=== PATIENT | female | born 1940 | race Caucasian/White ===

== ENCOUNTER 2017-09-18 09:42 | Outpatient (CLI) | payer MEDICARE, BC ==
--- NOTE | 2017-09-18 13:12 | ULT ---
ULTRASOUND PELVIC ULTRASOUND TRANSVAGINAL DOPPLER DUPLEX: DATE: 09/18/2017 HISTORY: A 77-year-old female with midline pelvic pain. TECHNIQUE: Transabdominal transducer used to evaluate intrapelvic contents using the urinary bladder as an acous tic window. Endovaginal transducer used to visualize intrapelvic contents in greater detail. Color fl ow Doppler and Pulsed Doppler spectral waveform analysis of ovaries. FINDINGS: Uterus: Surgically absent. Right ovary: 2 x 1 x 1 cm. Blood flow demonstrated in the right ovary by Doppler. No ovarian cyst. Left ovary: Not identified. Free fluid: None identified. Urinary bladder: Unremarkable. IMPRESSION: 1. Status post hysterectomy. 2. Left ovary not visualized. 3. Unremarkable right ovary. CHLOE Vaz POS: NOLAN
== END 2017-09-18 09:43 | disposition home or self-care (01) ==
LOC: ULT 09:42
PROVIDERS: ATTEND Family Medicine
DX: R10.30 Lower abdominal pain, unspecified (principal); Z90.710 Acquired absence of both cervix and uterus
CPT/HCPCS: 76856

== ENCOUNTER 2018-02-20 02:20 | Inpatient (IN) | payer MEDICARE, BC ==
[2018-02-20 02:53] LABS: Bilirubin Negative (Negative); Blood, Urine Trace (Negative); Clarity CLOUDY (Clear); Glucose, Urine (Dipstick) Negative (Negative); Leukocyte Large (Negative); Nitrite Negative (Negative); Protein, Urine (Dipstick) Negative (Neg-Trace); Urobilinogen 0.2 mg/dL (0.2-1.0)
[2018-02-20 02:56] LABS: Bacteria/HPF 2+ HPF (None Seen); RBC/HPF 0-3 HPF (0-3); Squamous Epithelial None Seen HPF (0-3)
[2018-02-20 02:57] LABS: Pathc Cast-AUWi Flag 4.07 (0-2.49); Yeast-AUWi Flag 30.8 (0-25.0)
[2018-02-20 03:09] LABS: Other Casts/LPF None Seen LPF (0-3 Hyaline); Yeast-All Forms None Seen HPF (None Seen)
[2018-02-20] MEDS ORDERED: cefTRIAXone\\ROCEPHIN 2 GM VIAL ONE (03:44)
[2018-02-20] MEDS ORDERED: Ondansetron ODT 4 MG TAB SL PRN (04:44)
[2018-02-20] MEDS ORDERED: Sodium Chloride 0.9% 1,000 ML IV SCH (04:44)
[2018-02-20] MEDS ORDERED: Ondansetron HCl/PF 4 MG/2 ML Vial IVP PRN ×2 (04:44→09:33)
[2018-02-20 05:21] VITALS: BMI 34.5
[2018-02-20 09:02] LABS: CRP (Inflammatory) 0.68 mg/dL (= or < 0.5); Magnesium 1.6 mg/dL (1.6-2.6); Troponin I Less than 0.010 ng/mL (< 0.028)
[2018-02-20] MEDS ORDERED: Insulin Regular 300 UNITS/3 ML VIAL SC PRN (09:33)
[2018-02-20] MEDS ORDERED: Nitroglycerin 0.4 MG TAB (25 Tab Bottle) PO PRN (09:33)
[2018-02-20] MEDS ORDERED: Bisacodyl 10 MG SUPP PR PRN (09:33)
[2018-02-20] MEDS ORDERED: Calcium Carbonate 500 MG ChewTAB PO PRN (09:33)
[2018-02-20] MEDS ORDERED: Dextrose 5% in Water 1,000 ML IV PRN (09:33)
[2018-02-20] MEDS ORDERED: Dextrose 50% Abboject 50 ML SYRINGE SLOW IVP PRN (09:33)
[2018-02-20] MEDS ORDERED: Senokot 8.6 MG TAB PO PRN (09:33)
[2018-02-20] MEDS ORDERED: Ondansetron ODT 4 MG TAB PO PRN (09:33)
--- NOTE | 2018-02-20 09:48 | HP ---
DATE OF ADMISSION: 02/20/2018 CHIEF COMPLAINT: Altered mentation, generalized weakness and fall. HISTORY OF PRESENT ILLNESS: The patient is a 77-year-old female with chronic pain syndrome on chronic narcotics, diabetes mellitus type 2 and hypertension who was brought into [facility] Room with above complaints. Not much information is available from the patient due to current cognition. No family at the bedside. History obtained from the ER chart. The patient presented to [facility] Room due to generalized weakness and unable to get up. She called EMS. She usually ambulates with the help of a cane. The weakness has been ongoing for the last few days. There were no significant injuries. She has chronic back pain, which has unchanged. In the emergency room, her initial vital signs showed temperature 98.2, respirations 16, pulse 55, blood pressure 129/44 with O2 saturation 94% on room air. Her blood pressure in the emergency room dropped to 88/39 that improved with IV hydration. She was found to have pinpoint pupils with dry mucous membranes. She was transferred to this facility for hospital admission. At this facility, she was diagnosed with UTI and received [address] head was negative for acute findings. Chest x-ray was negative for infiltrate. Urinalysis was consistent with UTI. Blood cultures have been sent. PAST MEDICAL HISTORY: 1. Hypertension 2. Hyperlipidemia. 3. Diabetes mellitus type 2. 4. Chronic low back pain managed by Dr. Trinh. 5. Depression, anxiety. 6. History of recurrent urinary tract infection, followed by Dr. Hood. 7. Overactive bladder. 8. Vitamin D deficiency. 9. Obesity with a BMI of 34.6. 10. Chronic insomnia. 11. Colon polyp. PAST SURGICAL HISTORY: 1. Tonsillectomy. 2. Hysterectomy, partial. 3. Bilateral knee replacement. 4. Right hip replacement. 5. Abdominal hernia repair. 6. Back surgery. 7. Left rotator cuff surgery. 8. Bladder suspension. 9. Spinal stimulator ([employer] placed in 2005). 10. Cataract surgery x2. ALLERGIES: The patient is allergic to, 1. LOPRESSOR that causes swelling. 2. MOBIC that causes swelling. 3. FENTANYL that causes itching. 4. TYLOX that causes hallucination. CURRENT HOME MEDICATIONS: Cannot be obtained from the patient due to current cognitive status. Apparently, there is a lidocaine patch and a fentanyl patch was found on the patient on admission. Per review of recent pharmacy record, the patient takes MS Contin, gabapentin, glipizide, lisinopril and amlodipine. We will try to obtain accurate list from the family. SOCIAL HISTORY: The patient currently lives at home with her . She is a former smoker. She is retired. is the primary decision maker. She is full code. No alcohol or drugs. Ambulates with the help of a cane. FAMILY HISTORY: Father of cancer. No other family history available from the patient. REVIEW OF SYSTEMS: Cannot be reliably obtained from the patient due to current cognitive status. PHYSICAL EXAMINATION: VITAL SIGNS: As discussed above, her last blood pressure was 124/59. GENERAL: A 77-year-old female with confusion. HEENT: Head atraumatic, normocephalic. Pupils were 4 mm bilaterally with slow response to light. Dry mucous membrane. No oral lesion. NECK: Supple, no JVD, no carotid bruit. LUNGS: Clear to auscultation bilaterally. No wheezing, rales or rhonchi. HEART: S1, S2 present. Regular rate and rhythm. No rubs or gallops appreciated. No significant murmurs appreciated. ABDOMEN: Soft, nontender, bowel sounds present. EXTREMITIES: No edema or calf tenderness. NEUROLOGIC: Limited neurological examination was essentially nonfocal. Power was 5/5 in all extremities. Gpspxb-sl-brfa test was normal. PSYCHIATRIC: The patient is alert and awake with intermittent confusion. She follows commands. She is aware that she is in the hospital. SKIN: Warm and dry. LYMPH NODES: No palpable lymph nodes in the neck. PERIPHERAL VASCULAR: Radial pulses palpable bilaterally. MUSCULOSKELETAL: No joint swelling or tenderness. LABORATORY FINDINGS: CBC showed WBC 6.1, hemoglobin 11.4, hematocrit 34.9, platelet 145,000. Chemistry showed sodium 136, potassium 4.6, chloride 97, bicarbonate 28, BUN 32, creatinine 1.44. Troponins were negative. BNP was 64. CRP was 0.68. TSH was 2. Magnesium 1.6. Urinalysis showed 2+ bacteria with greater than 50 WBCs. IMAGIN. Chest x-ray by my review was negative. 2. Per ER record, CT scan of the brain was negative. However, I am unable to find the CT report. 3. EKG by my review showed sinus bradycardia with left axis deviation without significant ST-T wave changes. IMPRESSION: 1. Toxic metabolic encephalopathy, multifactorial. The patient had pinpoint pupils in the emergency room. She also has urinary tract infection. She has acute kidney injury as well. Rule out intracerebral bleed. 2. Chronic pain syndrome on chronic narcotics. 3. Acute kidney injury on chronic kidney disease stage 3. 4. Generalized weakness with fall, probably secondary to toxic metabolic encephalopathy, chronic pain syndrome and acute kidney injury on chronic kidney disease stage 3. 5. Urinary tract infection. The patient has a history of recurrent urinary tract infections. 6. Anxiety, depression. The patient denies any suicidal ideation. 7. Hyperlipidemia. 8. Hypertension. 9. Diabetes mellitus type 2. PLAN: The patient will be monitored on the telemetry unit. We will get frequent neuro checks. A CT scan of the brain will be obtained. We will continue IV ceftriaxone. Urine cultures have been sent. I am unable to confirm whether blood cultures were sent. However, she has already received antibiotics. We will check orthostatic vitals. We will consult Physical Therapy. We will hold narcotics for now. We will confirm all of her home medications. Insulin sliding scale. Plan of care was discussed with the patient. We will discuss the plan of care with the family. MARINA
[2018-02-20] MEDS: Sodium Chloride 0.9% 1,000 ML IV SCH ×2 (11:07→18:23)
--- NOTE | 2018-02-20 12:19 | CT ---
HEAD CT WITHOUT CONTRAST: Date: 02/20/18 COMPARISON: None. HISTORY: Fall, altered mental status. TECHNIQUE: Serial axial CT imaging at 5 mm intervals from vertex through skull base without contrast. FINDINGS: Imaged paranasal sinuses/mastoid air cells well aerated. No displaced calvarial fracture. No intracra nial hemorrhage, midline shift, mass effect, or ventricular enlargement. IMPRESSION: No acute findings. POS: NOLAN
--- NOTE | 2018-02-20 12:34 | RAD ---
RIGHT HIP 2 VIEWS: Date: 02/20/18 HISTORY: 77-year-old female with history of right hip pain following a fall. FINDINGS/IMPRESSION: Total right hip replacement changes without dislocation or periprosthetic fracture. POS: VIKAS
--- NOTE | 2018-02-20 12:36 | RAD ---
LEFT HIP 2 VIEWS: Date: 02/20/18 HISTORY: 77-year-old female with history of left hip pain following a fall. FINDINGS/IMPRESSION: Total left hip replacement without dislocation or periprosthetic fracture or other acute process. POS: VIKAS
[2018-02-20] MEDS ORDERED: Magnesium 2 GM/NS 0.9% 100 ML 2 GM in Premix Bag 1 BAG IVPB SCH (13:30)
[2018-02-20] MEDS ORDERED: Famotidine 20 MG TAB PO SCH ×2 (21:00)
[2018-02-20] MEDS: Enoxaparin Sodium 30 MG/0.3 ML SYRINGE SC SCH (21:18)
[2018-02-20] MEDS: Docusate 100 MG CAP PO SCH (21:19)
[2018-02-20] MEDS: Acetaminophen 325 MG TAB PO PRN (23:26)
[2018-02-21] MEDS: Sodium Chloride 0.9% 1,000 ML IV SCH ×3 (03:44→20:53)
[2018-02-21] MEDS: Acetaminophen 325 MG TAB PO PRN ×3 (05:51→15:43)
[2018-02-21 06:17] LABS: #Eosinphils 0.2 thou/uL (0.0-0.7); #Lymphocytes 1.3 thou/uL (1.20-3.40); #Monocytes 0.3 thou/uL (0.11-0.59); #Neutrophils 1.9 thou/uL (1.40-6.50); %Eosinophils 4.4 % (0.0-10.0); %Lymphocytes 35.4 % (21.0-51.0); %Monocytes 7.6 % (0.0-10.0); %Neutrophils 52.6 % (42.0-75.0); Hemoglobin 12.2 g/dL (12.0-16.0); Mean Corpuscular Hemoglobin 29.2 pg (27.0-31.0); Mean Corpuscular Volume 88.5 fL (78.0-98.0); Platelet Count 148 thou/uL (130-400); RBC Distribution Width 12.7 % (11.5-14.5); Red Blood Cell (RBC) Count 4.17 mill/uL (4.20-5.40); White Blood Cell (WBC) Count 3.6 thou/uL (4.8-10.8)
[2018-02-21 06:36] LABS: Anion Gap 11 mmol/L (10-20); BUN (Urea Nitrogen) 17 mg/dL (9.8-20.1); Calc. Creatinine Clearance 67 mL/min (70-130); Calcium 9.3 mg/dL (7.8-10.44); Carbon Dioxide 26 mmol/L (23-31); Chloride 103 mmol/L (98-107); Estimated GFR-MDRD 65; Glucose 116 mg/dL (83-110); Potassium 4.2 mmol/L (3.5-5.1); Sodium 136 mmol/L (136-145)
[2018-02-21] MEDS ORDERED: Enoxaparin Sodium 30 MG/0.3 ML SYRINGE SC SCH (09:00)
[2018-02-21] MEDS: Docusate 100 MG CAP PO SCH ×2 (09:10→20:49)
[2018-02-21] MEDS ORDERED: Morphine IR Tab 15 MG TAB PO PRN (09:32)
[2018-02-21] MEDS ORDERED: Gabapentin 100 MG CAP PO SCH ×2 (10:00→15:00)
[2018-02-21] MEDS ORDERED: Amlodipine 5 MG TAB PO SCH (12:00)
[2018-02-21] MEDS ORDERED: Lisinopril 20 MG TAB PO SCH (12:00)
[2018-02-21] MEDS ORDERED: Spironolactone 25 MG TAB PO SCH (12:00)
--- NOTE | 2018-02-21 19:15 | PRG ---
DATE OF SERVICE: 02/21/2018 SUMMARY: A 77-year-old female with chronic pain syndrome on chronic narcotics, presented to the hosp ital with altered mentation with generalized weakness and fall. She had pinpoint pupils in the emerg ency room. A workup was also consistent with UTI. A CT brain was negative. She also had some acute kidney injury that improved with IV hydration. SUBJECTIVE: The patient denies any new complaints. Mentation has significantly improved. She denie s any chest pain, shortness of breath, palpitations, fever or chills. OBJECTIVE: VITAL SIGNS: Temperature 98, pulse rate of 53, respiration 15, blood pressure 164/69. Intake of 349 1, output 3640. GENERAL: A 77-year-old female in no apparent distress. Telemetry monitoring by my review showed sin us bradycardia. LUNGS: Clear to auscultation bilaterally. HEART: S1, S2 present. Regular rate and rhythm. ABDOMEN: Soft, bowel sounds present. EXTREMITIES: No edema or calf tenderness. NEUROLOGIC: Grossly nonfocal. Cranial nerves II-XII were normal on examination. PSYCHIATRIC: Alert, awake, oriented x3. Mentation has significantly improved. LABORATORY FINDINGS: 1. Creatinine has improved to 0.85 from 1.44, sodium 136, potassium 4.2. 2. WBC 3.6 with hemoglobin 12.2. Urine culture showed alpha hemolytic streptococcus greater than 10 0,000 colonies. 3. X-ray of the hip was negative. CT scan of the brain was negative. IMPRESSION: 1. Toxic metabolic encephalopathy, multifactorial. Possibilities include urinary tract infection ve rsus encephalopathy secondary to narcotics. She was also dehydrated. 2. Chronic pain syndrome on chronic narcotics. We will resume oral morphine as needed with holding parameters. 3. Acute kidney injury on chronic kidney disease stage 3, improved. We will reduce IV fluid rate. 4. Hypertension, uncontrolled. Blood pressure was in systolic 180s this morning. We will resume al l of her home medications. 5. Anxiety, depression. Patient denies any suicidal ideation. 6. Diabetes mellitus type 2. We will continue sliding scale. 7. Hyperlipidemia. We will continue home medications. 8. Disposition: Probably in 24 hours if patient remains stable. We will continue physical therapy, occupation therapy.
[2018-02-21] MEDS: Enoxaparin Sodium 30 MG/0.3 ML SYRINGE SC SCH (20:48)
[2018-02-21] MEDS: TROSPIUM 20 MG TABLET PO SCH (20:48)
[2018-02-21] MEDS: Lisinopril 20 MG TAB PO SCH (20:49)
[2018-02-21] MEDS: Pregabalin 75 MG CAP PO SCH (20:50)
[2018-02-21] MEDS: Famotidine 20 MG TAB PO SCH (20:50)
[2018-02-21] MEDS ORDERED: traZODone HCl 50 MG TAB PO SCH (21:00)
[2018-02-21] MEDS ORDERED: Pravastatin Sodium 20 MG TAB PO SCH (21:00)
[2018-02-22] MEDS: Acetaminophen 325 MG TAB PO PRN (08:12)
[2018-02-22] MEDS: Docusate 100 MG CAP PO SCH (08:13)
[2018-02-22] MEDS: Lisinopril 20 MG TAB PO SCH (08:13)
[2018-02-22] MEDS: Pregabalin 75 MG CAP PO SCH (08:13)
[2018-02-22] MEDS: Famotidine 20 MG TAB PO SCH (08:14)
[2018-02-22] MEDS: TROSPIUM 20 MG TABLET PO SCH (08:15)
[2018-02-22] MEDS ORDERED: Fenofibrate Nanocrystallized 145 MG TAB PO SCH (09:00)
[2018-02-22] MEDS ORDERED: Amlodipine 5 MG TAB PO SCH (09:00)
[2018-02-22] MEDS ORDERED: Spironolactone 25 MG TAB PO SCH (09:00)
[2018-02-22 11:55] VITALS: BP 145/65; TEMP 97.6
--- NOTE | 2018-02-22 13:48 | DIS ---
DATE OF ADMISSION: 02/20/2018 DATE OF DISCHARGE: 02/22/2018 PRIMARY CARE PHYSICIAN: Ritu Murray M.D. DISCHARGE DISPOSITION: Home. PRIMARY DISCHARGE DIAGNOSES: 1. Toxic metabolic encephalopathy. 2. Opioid overmedication. 3. Chronic pain. 4. Urinary tract infection. 5. Acute on chronic kidney injury, resolved. 6. Hypertension. 7. Diabetes mellitus, type 2. DISCHARGE MEDICATIONS: Include Levaquin 250 mg p.o. daily and glyburide 5 mg daily. She is to danny nue morphine extended release 15 mg q.8 hours as needed. Lyrica was discontinued. Trazodone to cont inue 100 mg daily. Continue Aldactone 25 mg daily, VESIcare 5 mg daily, ranitidine 150 mg twice a da y, pravastatin 20 mg at bedtime, lisinopril 20 mg twice a day, lidocaine patch daily, hydrochlorothia zide 12.5 mg daily, Lasix 20 mg daily, fenofibrate 145 mg daily, Biotin 1 mg daily, amlodipine 5 mg d aily. PROCEDURES DONE DURING ADMISSION: The patient had a CT scan of the brain, which was negative for any acute findings. CODE STATUS: Full code. ALLERGIES: MELOXICAM, METOPROLOL, OXYCODONE and PENICILLIN. HOSPITAL COURSE: Ms. Reynolds is a pleasant 77-year-old female who presented to the emergency room with altered mental status. She was confused and a bit lethargic. She was found to have a urinary tract infection and also was found to be dehydrated with an acute on chronic kidney failure, which wa s mild. She was also noted to have a recent increase in the dose of Lyrica and her seems to believe that she is overmedicated. This was discussed with the patient and the plan will be to disco ntinue the Lyrica as she said she was only taking it once a day already anyway and to only take the m orphine as needed and also to stay hydrated and she will also be discharged home on Levaquin. Urine cultures grew Aerococcus urinae. She was subsequently discharged home to [facility].
== END 2018-02-22 13:10 | disposition home or self-care (01) | DRG 689 ==
LOC: ERS 02:20 → 2NO 03:00
PROVIDERS: ADMIT Internal Medicine; ATTEND Internal Medicine
DX: N39.0 Urinary tract infection, site not specified (principal); G92 Toxic encephalopathy; N17.9 Acute kidney failure, unspecified; E78.5 Hyperlipidemia, unspecified; F32.9 Major depressive disorder, single episode, unspecified; G89.29 Other chronic pain; M54.5 Low back pain; F41.9 Anxiety disorder, unspecified; N32.81 Overactive bladder; E55.9 Vitamin D deficiency, unspecified; E66.9 Obesity, unspecified; Z68.34 Body mass index [BMI] 34.0-34.9, adult; G47.00 Insomnia, unspecified; K63.5 Polyp of colon; Z96.653 Presence of artificial knee joint, bilateral; Z96.641 Presence of right artificial hip joint; Z88.8 Allergy status to other drugs, medicaments and biological substances; Z88.6 Allergy status to analgesic agent; Z79.899 Other long term (current) drug therapy; Z87.891 Personal history of nicotine dependence; N18.3 Chronic kidney disease, stage 3 (moderate); I12.9 Hypertensive chronic kidney disease with stage 1 through stage 4 chronic kidney disease, or unspecified chronic kidney disease; E11.22 Type 2 diabetes mellitus with diabetic chronic kidney disease; Z79.891 Long term (current) use of opiate analgesic; T40.605A Adverse effect of unspecified narcotics, initial encounter; Z88.0 Allergy status to penicillin; Z88.5 Allergy status to narcotic agent; E86.0 Dehydration
CPT/HCPCS: 36415; 36416; 51701; 70450; 80048; 81003; 81015; 83735; 84484; 85025; 86140; 87077; 87086; 94760; 96365; 99214; A4216; A4353; G0463; G8978-GP-CI; G8979-GP-CI; G8980-GP-CI; G8987-GO-CJ; G8988-GO-CI; J0696; J1650; J1815; J1956; J3475

== ENCOUNTER 2018-04-22 06:17 | Day surgery (SDC) | payer MEDICARE, BC ==
[2018-04-21 08:44] VITALS: BMI 34.0
[2018-04-22 08:02] LABS: Anion Gap 14 mmol/L (10-20); BUN (Urea Nitrogen) 19 mg/dL (9.8-20.1); Calc. Creatinine Clearance 69 mL/min (70-130); Calcium 9.6 mg/dL (7.8-10.44); Carbon Dioxide 25 mmol/L (23-31); Chloride 103 mmol/L (98-107); Estimated GFR-MDRD 67; Glucose 129 mg/dL (83-110); Potassium 4.4 mmol/L (3.5-5.1); Sodium 138 mmol/L (136-145)
[2018-04-22] MEDS ORDERED: Fentanyl 100 MCG/2 ML VIAL ONE ×2 (08:03→08:40)
[2018-04-22 08:17] LABS: #Eosinphils 0.2 thou/uL (0.0-0.7); #Lymphocytes 1.4 thou/uL (1.20-3.40); #Monocytes 0.4 thou/uL (0.11-0.59); #Neutrophils 3.1 thou/uL (1.40-6.50); %Basophils 0.6 % (0.0-1.0); %Lymphocytes 27.8 % (21.0-51.0); %Monocytes 8.4 % (0.0-10.0); %Neutrophils 60.2 % (42.0-75.0); Hemoglobin 12.9 g/dL (12.0-16.0); Mean Corpuscular Hemoglobin 29.2 pg (27.0-31.0); Mean Corpuscular Volume 88.4 fL (78.0-98.0); Mean Platelet Volume 8.8 fL (7.4-10.4); Platelet Count 147 thou/uL (130-400); RBC Distribution Width 13.9 % (11.5-14.5); Red Blood Cell (RBC) Count 4.41 mill/uL (4.20-5.40); White Blood Cell (WBC) Count 5.1 thou/uL (4.8-10.8)
--- NOTE | 2018-04-22 08:28 | RAD ---
PORTABLE UPRIGHT CHEST ONE VIEW: History: 77-year-old female with history of pre-operative evaluation. FINDINGS: Dorsal column stimulator leads overlie the thoracic spine. Pedicle screws and rods are noted involvin g the upper lumbar spine. Total right shoulder reverse arthroplasty changes are noted. Minimal parenc hymal changes in the left lower lobe which appear stable. No confluent pneumonia or other significant new process. IMPRESSION: Stable minimal pleural and parenchymal opacity changes in the left base. No significant new process. POS: NOLAN
[2018-04-22] MEDS ORDERED: Betamet Acet/Betamet Na Ph 30 MG/5 ML VIAL ONE (08:38)
[2018-04-22] MEDS ORDERED: Bacitracin Zinc Ointment 30 gm TUBE ONE (08:38)
[2018-04-22] MEDS ORDERED: Bupivacaine PF 0.5% 30 ML VIAL ONE (08:38)
[2018-04-22] MEDS ORDERED: CEFAZOLIN 2 GM/50 ML BAG ONE (08:45)
--- NOTE | 2018-04-22 11:24 | OP ---
DATE OF PROCEDURE: 04/22/2018 SURGEON: Dr. Feroz Mondragon PREOPERATIVE DIAGNOSIS: Left carpal tunnel syndrome. POSTOPERATIVE DIAGNOSIS: Left carpal tunnel syndrome. PROCEDURE: 1. Left carpal tunnel release. 2. Injection of steroid carpal tunnel canal. SPECIMEN: None. BLOOD LOSS: 5 mL. TOURNIQUET TIME: 17 minutes. 1.5 cm area of stippling with hourglass formation median nerve within the carpal canal. INDICATION: Failed conservative treatment with documented clinical and electrodiagnostic carpal tunn el syndrome. PROCEDURE IN DETAIL: After successful general LMA technique, the limb was prepped and draped. Timeo ut was done appropriately. We injected the area with 10 mL 0.5% Marcaine before surgery and 10 after the wound was closed. We exsanguinated the limb and inflated tourniquet to 250 mmHg pressure. Incision was outlined and then made in line with the ring finger from medial to lateral as far distal as Hernandez's cardinal line for approximately 5 mm distal to the volar wrist flexion crease. The dull dissection with tenotomy scissors, got down to the transverse carpal ligament, we spread this with s elf-retainer, tracked it and then entered the transcarpal ligament from the mid portion distally with a combination of Paulding blade, tenotomy scissors, protecting the nerve endings. This was released c ompletely, then we released the transverse carpal ligament proximal and mid portion proximally, ensur ing that there was no defect in the transverse carpal ligament release visually or by palpation at th e end of the procedure. We placed 3 mL of Celestone in drip technique around the area where the most stippling was noticed, released the tourniquet, closed the epidermis only with interrupted 4-0 nylon mattress pattern. Bulky dressing was applied and the patient left the operating room without eviden ce of anesthetic or operative complication.
[2018-04-22] MEDS ORDERED: Lidocaine 1% PF 5 ML VIAL ONE (15:08)
[2018-04-22] MEDS ORDERED: Ondansetron PF 4 MG/2 ML Vial ONE (15:08)
[2018-04-22] MEDS ORDERED: PROPOFOL 200 MG/20 ML VIAL ONE (15:08)
--- NOTE | 2018-04-27 21:47 | EKG ---
Test Reason : PREOP Blood Pressure : / mmHG Vent. Rate : 058 BPM Atrial Rate : 058 BPM P-R Int : 148 ms QRS Dur : 086 ms QT Int : 464 ms P-R-T Axes : 024 -36 -16 degrees QTc Int : 455 ms Sinus bradycardia Left axis deviation Nonspecific T wave abnormality Abnormal ECG No previous ECGs available Confirmed by RIVERA GTZ (2) on 04/27/2018 9:46:57 PM Referred By: YENI Confirmed By:RIVERA GTZ
== END 2018-04-22 11:20 | disposition home or self-care (01) ==
LOC: SDC 06:17
PROVIDERS: ATTEND Orthopaedic Surgery Hand Surgery
PROC: 01N50ZZ Release Median Nerve, Open Approach (ICD-10-PCS; principal; 2018-04-22)
DX: G56.02 Carpal tunnel syndrome, left upper limb (principal); I10 Essential (primary) hypertension; E78.5 Hyperlipidemia, unspecified; E11.9 Type 2 diabetes mellitus without complications; E66.9 Obesity, unspecified; M48.02 Spinal stenosis, cervical region; G56.03 Carpal tunnel syndrome, bilateral upper limbs; M19.90 Unspecified osteoarthritis, unspecified site; Z79.84 Long term (current) use of oral hypoglycemic drugs; Z79.899 Other long term (current) drug therapy; Z87.891 Personal history of nicotine dependence; Z88.8 Allergy status to other drugs, medicaments and biological substances
CPT/HCPCS: 71045; 80048; 85025; 85652; 93005; 93010; J0702; J2001; J2405; J2704; J3010; S0020

== ENCOUNTER 2018-04-29 06:41 | Day surgery (SDC) | payer MEDICARE, BC ==
[2018-04-28 14:34] VITALS: BMI 24.3
[~2018-04-29 06:41] MED LIST: Prevnar 13-Val Conj/PF 0.5 ML SYRINGE IM ONE
[2018-04-29 08:01] VITALS: BP 160/47; TEMP 97.6
--- NOTE | 2018-04-29 14:11 | CT ---
CT CERVICAL SPINE WITH CONTRAST CT CERVICAL MYELOGRAM: Date: 04/29/18 CLINICAL HISTORY: Neck pain, cervical spondylosis. FINDINGS: There is reversal of the normal cervical curvature with focal kyphosis centered at C4-5. Degenerative hypertrophy of C1-2 level is present. Pannus formation mildly effaces the ventral thecal sac at the C1 level. C2-3: There is a disc osteophyte without significant central canal stenosis. Bilateral uncinate proc ess hypertrophy is present, more notable on the left, with mild bilateral neural foraminal narrowing. C3-4: There is disc osteophyte, as well as uncinate process and bilateral facet hypertrophy, which r esults in moderate bilateral neural foraminal stenosis. Mild effacement of the ventral thecal sac is present. C4-5: Broad based disc osteophyte with a focal central component effaces the ventral aspect of the c ervical spinal cord. Mild central canal stenosis is present. There is moderate right and moderate to severe left neural foraminal stenosis. C5-6: Broad based disc osteophyte asymmetric to the left is present with moderate focal narrowing of the left subarticular zone, and moderate to severe bilateral neural foraminal stenosis. There is eff acement of the ventral left hemicord. C6-7: Disc osteophyte with a focal central component approaches with minimal effacement of the ventr al cervical spinal cord. There is bilateral uncinate process and facet hypertrophy with mild narrowin g of each neural foramen. C7-T1: No high grade central canal or neural foraminal stenosis. Incidental note is prominent asymmetric enlargement of the left thyroid lobe with multifocal hypoatte nuation with interspersed calcification. There is also hypodensity of the atrophic right thyroid lobe . This indicates probable multinodular goiter, incompletely assessed on the basis of this exam. IMPRESSION: 1. Multilevel cervical spine degenerative change with associated ventral cord effacement and multile franki neural foraminal stenosis as delineated above. 2. Incidental note of multiple thyroid lesions and associated calcification. Correlate with thyroid ultrasound to further evaluate. POS: NOLAN
--- NOTE | 2018-04-29 14:14 | CT ---
CT GUIDED CERVICAL MYELOGRAM: Date: 04/29/18 CLINICAL HISTORY: Cervical spondylosis, neck pain. PROCEDURE: Informed consent was obtained. The patient was escorted to the CT procedural suite and placed into e CT gantry in a right lateral decubitus position. Left lateral neck was then prepped and draped in t he standard sterile fashion, and approach at the C1-2 level was performed. After standard sterile pre pping and draping, and topical anesthesia was achieved with buffered 1% lidocaine, uneventful access into the thecal sac with a 22 gauge needle was performed, confirmed under CT fluoroscopic imaging wit h a small volume of radiopaque contrast. Approximately 9 mL of [id number]-[id number] was subsequently injected into the thecal sac, confirmed with CT imaging. Needle was removed. There were no procedural complica tions. The patient was transferred to radiology holding and monitored in stable condition prior to di scharge. FINDINGS: Contrast is present within the thecal sac. IMPRESSION: Technically successful CT guided cervical myelogram, as discussed above. POS: NOLAN
== END 2018-04-29 10:30 | disposition home or self-care (01) ==
LOC: RAD 06:41
PROVIDERS: ATTEND Neurological Surgery
PROC: B02B1ZZ Computerized Tomography (CT Scan) of Spinal Cord using Low Osmolar Contrast (ICD-10-PCS; principal; 2018-04-29)
DX: M47.812 Spondylosis without myelopathy or radiculopathy, cervical region (principal); M25.78 Osteophyte, vertebrae; M48.02 Spinal stenosis, cervical region; Z79.82 Long term (current) use of aspirin; Z79.84 Long term (current) use of oral hypoglycemic drugs; Z79.899 Other long term (current) drug therapy; Z88.5 Allergy status to narcotic agent; Z88.8 Allergy status to other drugs, medicaments and biological substances
CPT/HCPCS: 72126; 77002

== ENCOUNTER 2018-05-15 12:04 | Outpatient (CLI) | payer MEDICARE, BC ==
[2018-05-15 12:54] LABS: #Basophils 0.1 thou/uL (0.0-0.2); #Eosinphils 0.3 thou/uL (0.0-0.7); #Lymphocytes 1.8 thou/uL (1.20-3.40); #Monocytes 0.4 thou/uL (0.11-0.59); #Neutrophils 3.2 thou/uL (1.40-6.50); %Basophils 1.6 % (0.0-1.0); %Eosinophils 4.7 % (0.0-10.0); %Lymphocytes 31.1 % (21.0-51.0); %Monocytes 6.2 % (0.0-10.0); %Neutrophils 56.4 % (42.0-75.0); Hemoglobin 12.3 g/dL (12.0-16.0); Mean Corpuscular HGB CONC 34.6 g/dL (32.0-36.0); Mean Corpuscular Hemoglobin 30.5 pg (27.0-31.0); Mean Corpuscular Volume 88.3 fL (78.0-98.0); Mean Platelet Volume 8.7 fL (7.4-10.4); Platelet Count 162 thou/uL (130-400); RBC Distribution Width 14.7 % (11.5-14.5); Red Blood Cell (RBC) Count 4.02 mill/uL (4.20-5.40); White Blood Cell (WBC) Count 5.7 thou/uL (4.8-10.8)
[2018-05-15 13:22] LABS: Anion Gap 12 mmol/L (10-20); BUN (Urea Nitrogen) 18 mg/dL (9.8-20.1); Calc. Creatinine Clearance 0 mL/min (70-130); Calcium 9.4 mg/dL (7.8-10.44); Carbon Dioxide 26 mmol/L (23-31); Chloride 101 mmol/L (98-107); Estimated GFR-MDRD 57; Glucose 199 mg/dL (83-110); Potassium 4.4 mmol/L (3.5-5.1); Sodium 135 mmol/L (136-145)
== END 2018-05-15 12:05 | disposition home or self-care (01) ==
LOC: LABBT 12:04
PROVIDERS: ATTEND Neurological Surgery
DX: Z01.818 Encounter for other preprocedural examination (principal); M54.12 Radiculopathy, cervical region
CPT/HCPCS: 80048; 85025; 93005; 93010

== ENCOUNTER 2018-06-09 09:17 | Day surgery (SDC) | payer MEDICARE, BC ==
[2018-05-15 12:30] VITALS: BMI 34.5
[2018-06-09] MEDS ORDERED: CEFAZOLIN 2 GM/50 ML BAG ONE (10:21)
[2018-06-09] MEDS ORDERED: Fentanyl 100 MCG/2 ML VIAL ONE ×3 (10:49→13:20)
[2018-06-09] MEDS ORDERED: Bupivacaine HCl 0.5%/Epinephrine 1:200,000/PF 30 ml Vial ONE (11:49)
[2018-06-09] MEDS ORDERED: Sodium Chloride 0.9% 10 ML ONE (11:49)
[2018-06-09] MEDS ORDERED: HYDROcodone/Acetaminophen 5/325 mg Tablet ONE (15:04)
[2018-06-09] MEDS ORDERED: Ondansetron PF 4 MG/2 ML Vial ONE (15:06)
[2018-06-09] MEDS ORDERED: Lidocaine 1% PF 5 ML VIAL ONE (15:06)
[2018-06-09] MEDS ORDERED: PROPOFOL 200 MG/20 ML VIAL ONE (15:06)
--- NOTE | 2018-06-09 18:01 | OP ---
DATE OF PROCEDURE: 06/09/2018 SURGEON: Link Randolph MD. ELECTRICAL TECHNICIAN: Fam. PROCEDURE: Removal of dorsal column stimulator, electrode plate, and battery pack. DESCRIPTION OF PROCEDURE: The patient was brought to the operating room and intubated. She was rolled in the prone position on on gel-filled chest rolls. The incision over the battery and the incision over the insertion site of the spinal cord stimulator leads were both opened and hardware identified. The battery pack removed without difficulty, as was the electrode plate array. Wounds were extensively irrigated. Maximum hemostasis was secured. Vancomycin powder was applied and the wound was closed in anatomic layers. Job ID: [id number] MTDD
== END 2018-06-09 15:00 | disposition home or self-care (01) ==
LOC: SDC 09:17
PROVIDERS: ATTEND Neurological Surgery
PROC: 00PU3MZ Removal of Neurostimulator Lead from Spinal Canal, Percutaneous Approach (ICD-10-PCS; principal; 2018-06-09)
PROC: 0JPT0MZ Removal of Stimulator Generator from Trunk Subcutaneous Tissue and Fascia, Open Approach (ICD-10-PCS; 2018-06-09)
DX: T85.840A Pain due to nervous system prosthetic devices, implants and grafts, initial encounter (principal); I10 Essential (primary) hypertension; E78.5 Hyperlipidemia, unspecified; E11.9 Type 2 diabetes mellitus without complications; Z88.5 Allergy status to narcotic agent; Z88.8 Allergy status to other drugs, medicaments and biological substances; Z79.82 Long term (current) use of aspirin; Z79.84 Long term (current) use of oral hypoglycemic drugs; Z79.899 Other long term (current) drug therapy
CPT/HCPCS: 76000; 96374; J0670; J2001; J2405; J2704; J3010; J3370; J3490

== ENCOUNTER 2018-11-04 11:50 | Outpatient (CLI) | payer MEDICARE, BC ==
--- NOTE | 2018-11-04 12:36 | MRI ---
MRI Cervical Spine WO Con History: [M 54.12 cervical radiculopathy] Comparison: Cervical spine CT 2018 Findings: Cerebral tonsils terminate at the level of the foramen magnum. No marrow infiltrative proce ss. Modic type I endplate changes at C4/C5 intermixed with Modic type III endplate changes. Levels are as follows: C2/C3: Disc desiccation. Moderate left and severe right facet arthropathy. Moderate right neural fora suzette narrowing. C3/C4: Severe facet arthropathy. Anterolisthesis, 2 mm. Bilateral subforaminal posterior disc osteoph yte complexes. Moderate to severe bilateral neural foraminal narrowing. Spinal canal measures over 1 cm. C4/C5: There is a severe degenerative disc space height loss. Circumferential disc osteophyte complex . Severe facet arthropathy. Spinal canal is narrowed to approximately 8 mm. Moderate to severe bilateral neural foraminal narrowing. C5/C6: Severe degenerative disc space height loss. Circumferential disc osteophyte complex. 2 mm retr olisthesis. Severe facet arthropathy. Severe left and moderate to severe right neural foraminal narrowing. There is abutment of the cord. Ligament flavum hypertrophy. Spinal canal measures approxim ately 8 mm. C6/C7: There is ossification of the central posterior disc protrusion. Bilateral large subforaminal d isc osteophyte complexes. Moderate facet arthropathy. Ossification posterior longitudinal ligament. Spinal canal measures 8 mm. Severe left and moderate to severe right neural foraminal narrowing. There is asymmetrically enlarged left lobe of thyroid seen on the sagittal T2 images. Impression: Severe degenerative changes of the cervical spine as described with multilevel neural for aminal and spinal canal narrowing. There is also mild increase signal of the cord at C3-C5.
== END 2018-11-04 11:51 | disposition home or self-care (01) ==
LOC: MRI 11:50
PROVIDERS: ATTEND Anesthesiology Pain Medicine
DX: M47.22 Other spondylosis with radiculopathy, cervical region (principal); M48.02 Spinal stenosis, cervical region
CPT/HCPCS: 72141

== ENCOUNTER 2019-03-04 08:41 | Outpatient (CLI) | payer MEDICARE, BC ==
[2019-03-04 11:57] LABS: Hemoglobin 13.6 g/dL (12.0-16.0); Mean Corpuscular HGB CONC 34.8 g/dL (32.0-36.0); Mean Corpuscular Hemoglobin 30.9 pg (27.0-31.0); Mean Corpuscular Volume 88.8 fL (78.0-98.0); Mean Platelet Volume 8.6 fL (7.4-10.4); Platelet Count 150 thou/uL (130-400); RBC Distribution Width 12.4 % (11.5-14.5); White Blood Cell (WBC) Count 5.8 thou/uL (4.8-10.8)
[2019-03-04 12:21] LABS: Anion Gap 14 mmol/L (10-20); BUN (Urea Nitrogen) 20 mg/dL (9.8-20.1); Calc. Creatinine Clearance 0 mL/min (70-130); Calcium 9.4 mg/dL (7.8-10.44); Carbon Dioxide 26 mmol/L (23-31); Chloride 100 mmol/L (98-107); Estimated GFR-MDRD 56; Glucose 154 mg/dL (83-110); Potassium 4.7 mmol/L (3.5-5.1); Sodium 135 mmol/L (136-145)
--- NOTE | 2019-03-04 20:06 | EKG ---
Test Reason : Blood Pressure : / mmHG Vent. Rate : 054 BPM Atrial Rate : 054 BPM P-R Int : 146 ms QRS Dur : 094 ms QT Int : 436 ms P-R-T Axes : 063 -18 -42 degrees QTc Int : 413 ms Sinus bradycardia Nonspecific ST and T wave abnormality Abnormal ECG When compared with ECG of 15-MAY-2018 12:20, Left anterior fascicular block is no longer Present Inverted T waves have replaced nonspecific T wave abnormality in Inferior leads Confirmed by SHERRY BENZ, SCarlos Manuel (4) on 03/04/2019 8:06:08 PM Referred By: DAVID Confirmed By:DR. Kayy POWELL MD
== END 2019-03-04 08:42 | disposition home or self-care (01) ==
LOC: LABBT 08:41
PROVIDERS: ATTEND Neurological Surgery
DX: Z01.818 Encounter for other preprocedural examination (principal); M54.12 Radiculopathy, cervical region
CPT/HCPCS: 80048; 85027; 93005; 93010

== ENCOUNTER 2019-03-09 07:15 | Observation (INO) | payer MEDICARE, BC ==
[2019-03-04 11:07] VITALS: BMI 35.9
[2019-03-09] MEDS ORDERED: Sodium Chloride 0.9% 10 ML ONE (09:43)
[2019-03-09] MEDS ORDERED: Midazolam HCl 2 mg/2 ml Vial ONE (09:52)
[2019-03-09] MEDS ORDERED: Fentanyl 100 MCG/2 ML VIAL ONE ×4 (09:54→12:07)
[2019-03-09] MEDS ORDERED: Promethazine HCl 25 MG/ML VIAL SLOW IVP PRN (11:24)
[2019-03-09] MEDS ORDERED: Ondansetron HCl/PF 4 MG/2 ML Vial IVP PRN (11:24)
[2019-03-09] MEDS ORDERED: Promethazine HCl 25 MG/ML VIAL IM PRN ×2 (11:24→12:04)
[2019-03-09] MEDS ORDERED: HYDROcodone/Acetaminophen 10/325 mg Tablet PO PRN (12:04)
[2019-03-09] MEDS ORDERED: Promethazine HCl 12.5 MG SUPP PR PRN (12:04)
[2019-03-09] MEDS ORDERED: tiZANidine HCl 4 MG TAB PO PRN (12:04)
[2019-03-09] MEDS ORDERED: diphenhydrAMINE 25 MG CAP PO PRN (12:04)
[2019-03-09] MEDS ORDERED: Promethazine 25 MG TAB PO PRN (12:04)
[2019-03-09] MEDS ORDERED: Morphine 4 MG/ML VIAL SLOW IVP PRN (12:04)
[2019-03-09] MEDS ORDERED: diphenhydrAMINE 50 MG/ML VIAL IVP PRN (12:04)
[2019-03-09] MEDS ORDERED: Ondansetron PF 4 MG/2 ML Vial IVP PRN (12:04)
[2019-03-09] MEDS ORDERED: Mag-Al 1200 mg/1200 mg/30 ML UDCUP PO PRN (12:04)
[2019-03-09] MEDS ORDERED: traMADol HCl 50 MG TAB PO PRN ×2 (12:04)
[2019-03-09] MEDS ORDERED: Milk Of Magnesia 30 ML UDCUP PO PRN (12:04)
[2019-03-09] MEDS ORDERED: Ondansetron PF 4 MG/2 ML Vial ONE (13:25)
[2019-03-09] MEDS ORDERED: Rocuronium Bromide 10 MG/ML (10ML VIAL) ONE (13:25)
[2019-03-09] MEDS ORDERED: Dexamethasone 20 MG/5 ML VIAL ONE (13:25)
[2019-03-09] MEDS ORDERED: Ketorolac Tromethamine 30 MG/ML VIAL ONE (13:25)
[2019-03-09] MEDS ORDERED: PROPOFOL 200 MG/20 ML VIAL ONE (13:25)
[2019-03-09] MEDS: HYDROcodone/Acetaminophen 10/325 mg Tablet PO PRN ×2 (13:46→21:20)
[2019-03-09] MEDS ORDERED: Dextrose 50% Abboject 50 ML SYRINGE SLOW IVP PRN (15:33)
[2019-03-09] MEDS ORDERED: Dextrose 5% in Water 1,000 ML IV PRN (15:33)
[2019-03-09] MEDS ORDERED: HumaLOG 300 UNITS/3 ML VIAL SC PRN (15:33)
[2019-03-09] MEDS: CEFAZOLIN 2 GM in Premix Bag 1 BAG IVPB SCH ×2 (16:24→23:50)
[2019-03-09] MEDS: Sodium Chloride 0.9% 1,000 ML IV SCH (16:29)
--- NOTE | 2019-03-09 17:45 | CON ---
DATE OF CONSULTATION: 03/09/2019 CONSULTING PHYSICIAN: Dr. Link Randolph, Neurosurgery. REASON FOR CONSULTATION: Medical management. HISTORY OF PRESENT ILLNESS: The patient just had a surgery by Dr. Randolph. This was C4-C6 ACDF with preoperative diagnosis of cervical spondylosis. The patient was complaining about neck pain and she was treated by Dr. Trinh, her primary pain management doctor, but she chose to go ahead and have surgical repair of her problem done. PAST MEDICAL HISTORY: Positive for, 1. Hyperlipidemia. 2. Diabetes mellitus. 3. Hypertension. 4. Kidney problem. 5. Frequent UTIs. PAST SURGICAL HISTORY: Multiple surgeries on the back, knee replacements, and several surgeries on hips. FAMILY HISTORY: Mother was 47 when she passed from brain tumor and father was in his late 50s when he of cancer to. SOCIAL HISTORY: She does not drink. She does not smoke or use any illicit drugs. Primary doctor is Dr. Murray. Surrogate decision maker is the patient's , Eduardo Reynolds. REVIEW OF SYSTEMS: Fourteen systems were reviewed and symptoms only positive those ones, which are mentioned in HPI. ALLERGIES: TYLOX AND LOPRESSOR. THE PATIENT GETS SWELLING AND RASH. PHYSICAL EXAMINATION: VITAL SIGNS: Blood pressure is 162/78, pulse is 94, respiratory rate is 18. HEENT: Head is atraumatic and normocephalic. Eyes are PERRLA. Sclerae are nonicteric. Oral mucosa is moist. The right side of the neck is dressed. LUNGS: Clear. HEART: S1 and S2 normal. No S3. No S4. No any murmur. ABDOMEN: Soft, obese, nontender. Bowel sounds are present. No organomegaly. EXTREMITIES: No clubbing, cyanosis, or edema. NEUROLOGICAL: She follows my commands. She moves her all 4 extremities. There are no any motor or sensory deficits. LABORATORY DATA: None. DIAGNOSTIC DATA: The patient had echocardiogram done prior to this surgery and it was within normal limits. This was done at [facility]. IMPRESSION: 1. Hypertension. 2. Hyperlipidemia. 3. Diabetes mellitus. 4. Cervical spondylosis, status post C4 through C6 anterior cervical discectomy and fusion. 5. Unclear kidney problem. Per patient, she does not know much about that. PLAN: We will do Accu-Cheks a.c. and at bedtime and cover with sliding scale, mild. We will put her back on her home medications. We will check with Dr. Randolph whether it is okay to use aspirin at this point. She will start baby aspirin 81 mg tomorrow morning. We will use pain management/slow rate of IV fluids at 75 mL/h. Job ID: [id number]
--- NOTE | 2019-03-09 17:55 | OP ---
DATE OF PROCEDURE: 03/09/2019 TELETYPEWRITER OPERATOR: Roque. PROCEDURE PERFORMED: Anterior cervical diskectomy C4-C5 and C5-C6, interbody arthrodesis, intervertebral biomechanical device, local morselized autograft, demineralized bone matrix, anterior titanium instrumentation C4-C6. DESCRIPTION OF PROCEDURE: The patient was brought to the operating room and intubated. She was positioned supine with head in modest extension on a gel-filled donut. An incision was made in the right precervical area and dissected medial to the sternocleidomastoid muscle, identified the anterior cervical spinal, and the level was confirmed by x-ray. We debrided the anterior osteophytes, placed distraction across the disk spaces, and using the operative microscope and microdissection techniques, completely decompressed the intervertebral disks at C4-C5 and C5-C6, completely decompressing the spinal cord. The bony endplates were then decorticated for the purpose of arthrodesis and appropriately-sized intervertebral biomechanical PEEK devices were brought in the field. It was filled with demineralized bone matrix and local morselized autograft, and tapped into place securely at C4-C5 and C5-C6. Next, anterior plate was brought into the field and secured to C4, C5, and C6 using two 14-mm screws at each level. The wound was then extensively irrigated. MAC hemostasis was secured. The wound was closed in anatomic layers over drain. Job ID: [id number]
[2019-03-09] MEDS ORDERED: Melatonin 3 MG TAB PO SCH (21:00)
[2019-03-09] MEDS ORDERED: Simvastatin 5 MG TAB PO SCH (21:00)
[2019-03-09] MEDS: Famotidine 20 MG TAB PO SCH (21:22)
[2019-03-10] MEDS: Sodium Chloride 0.9% 1,000 ML IV SCH (02:25)
[2019-03-10] MEDS: HYDROcodone/Acetaminophen 10/325 mg Tablet PO PRN (05:23)
--- NOTE | 2019-03-10 06:56 | DIS ---
DATE OF ADMISSION: 03/09/2019 DATE OF DISCHARGE: 03/10/2019 HOSPITAL COURSE: The patient is an 78-year-old female who was recently seen in our office for progressive neck pain and found to have significant degenerative changes from C4 to C6 and underwent C4 to C6 ACDF. Following the surgery, she was transitioned to the Med/Surg floor, where her pain was well controlled with p.o. medications, she was tolerating regular diet, and she was voiding appropriately. She did have JESSICA drain placed intraoperatively, which had 30 mL out over the first night. This was removed on postoperative day #1. On my exam on postoperative day #1, the patient is awake, alert, in no acute distress. She has free active range of motion of all extremities. No focal motor weakness. Incision is clean, dry, and intact. PLAN: We will plan to dismiss the patient to home. I have discussed home care precautions. We will follow up with the patient in 2 weeks. She has been prescribed Hamilton and Zanaflex. Job ID: [id number]
[2019-03-10 07:48] VITALS: BP 156/89; TEMP 98.1
[2019-03-10] MEDS: Famotidine 20 MG TAB PO SCH (08:28)
[2019-03-10] MEDS ORDERED: Amlodipine 10 MG TAB PO SCH (09:00)
[2019-03-10] MEDS ORDERED: Docusate 100 MG CAP PO SCH (09:00)
[2019-03-10] MEDS ORDERED: Spironolactone 25 MG TAB PO SCH (09:00)
[2019-03-10] MEDS ORDERED: CRANBERRY 500 MG PO SCH (09:00)
[2019-03-10] MEDS ORDERED: Aspirin 81 mg Enteric Coated Tablet PO SCH (09:00)
== END 2019-03-10 08:55 | disposition home or self-care (01) ==
LOC: SDC 07:15 → SJJU 12:06
PROVIDERS: ADMIT Neurological Surgery; ATTEND Neurological Surgery
PROC: 0RG20A0 Fusion of 2 or more Cervical Vertebral Joints with Interbody Fusion Device, Anterior Approach, Anterior Column, Open Approach (ICD-10-PCS; principal; 2019-03-09)
PROC: 0RG2070 Fusion of 2 or more Cervical Vertebral Joints with Autologous Tissue Substitute, Anterior Approach, Anterior Column, Open Approach (ICD-10-PCS; 2019-03-09)
PROC: 0RT30ZZ Resection of Cervical Vertebral Disc, Open Approach (ICD-10-PCS; 2019-03-09)
DX: M47.22 Other spondylosis with radiculopathy, cervical region (principal); M48.02 Spinal stenosis, cervical region; I10 Essential (primary) hypertension; E11.9 Type 2 diabetes mellitus without complications; E78.5 Hyperlipidemia, unspecified; Z88.5 Allergy status to narcotic agent; Z88.8 Allergy status to other drugs, medicaments and biological substances
CPT/HCPCS: 20930; 20936; 22551; 22552; 22845; 22853 ×2; 76000; 82962 ×2; 96365; 97139; C1713 ×2; C1776; G0378 ×2; 36416; J0690; J1100; J1885; J2250; J2405; J2704; J3010; J3490

== ENCOUNTER 2019-03-25 13:25 | Outpatient (CLI) | payer MEDICARE, BC ==
--- NOTE | 2019-03-25 15:29 | RAD ---
CERVICLA SPINE SERIES 3 VIEWS: Date: 03/25/19 HISTORY: Neck pain. Surgery 2 weeks ago. FINDINGS: The patient has undergone anterior surgical fusion. There has been placement of plate and screws exte nding from C4-C6. Markers of a disc implant are within the confines of the disc level. IMPRESSION: Postoperative changes of the spine. POS: [facility]
== END 2019-03-25 13:26 | disposition home or self-care (01) ==
LOC: BICRAD 13:25
PROVIDERS: ATTEND Neurological Surgery
DX: M54.12 Radiculopathy, cervical region (principal); Z98.1 Arthrodesis status
CPT/HCPCS: 72040

== ENCOUNTER 2019-05-12 11:09 | Outpatient (CLI) | payer MEDICARE, BC ==
--- NOTE | 2019-05-12 12:37 | RAD ---
EXAM: 3 views of the cervical spine HISTORY: Neck pain. Cervical surgery on 03/09/2019 COMPARISON: 03/25/2019 FINDINGS: AP, lateral, and open mouth odontoid views of the cervical spine shows the patient is statu s post anterior fusion of C4-C6 with a plate and screws. Disc spacers are seen in good position within the disc spaces. No perihardware lucency is seen. No prevertebral soft tissue swelling is seen . The vertebral bodies demonstrate normal alignment without subluxation. IMPRESSION: Postsurgical changes of the cervical spine without evidence of complication.
== END 2019-05-12 11:10 | disposition home or self-care (01) ==
LOC: BICRAD 11:09
PROVIDERS: ATTEND Neurological Surgery
DX: M54.2 Cervicalgia (principal); Z98.890 Other specified postprocedural states
CPT/HCPCS: 72040

== ENCOUNTER 2019-05-13 09:44 | Outpatient (CLI) | payer MEDICARE, BC ==
--- NOTE | 2019-05-13 10:19 | RAD ---
LUMBAR SPINE THREE VIEWS: HISTORY: Possible stimulator. MRI clearance. COMPARISON: 08/08/2006 FINDINGS: Bilateral transpedicular screws at T12, L1, L2, L3, L4 and L5. Disc prosthesis at L2-L3, L3-L4 and L4 -L5. Laminectomy defect from L2 through L5. Lumbar spine vertebral body height is maintained. No fracture. Spondylolisthesis: 1.0 cm of anterolisthesis of L4 upon L5. The visualized bony pelvis and sacrum are unremarkable. Bilateral hip arthroplasties are noted. IMPRESSION: 1. Extensive lumbar fusion without evidence of perihardware lucency. 2. Disc prosthesis is as described above. 3. Grade 1-2 anterolisthesis of L4 upon L5. Transcribed Date/Time: 05/13/2019 10:41 AM
[2019-05-13] MEDS ORDERED: Magnevist 469MG/ML 20 ML VIAL ONE (11:13)
--- NOTE | 2019-05-13 11:37 | MRI ---
MR the lumbar spine with and without contrast: 05/13/2019 History: Spinal stenosis, low back pain with progressive worsening, multiple prior lumbar spine surge maximino COMPARISON: None available TECHNIQUE: Multiplanar multisequence MR images were obtained of lumbar spine without IV contrast FINDINGS: On the basis of 5 lumbar type vertebral bodies, conus medullaris terminates at theL1 level. Extensive postoperative hardware limits detailed assessment of the lumbar spine. Hardware includes bilateral pedicle screws at the T12, L1, L2, L3, L4, and L5 levels with vertically oriented interlocking rods. Sagittal STIR imaging demonstrates no focal area of osseous marrow edema. T12-L1:Bilateral facet hypertrophy. No significant central canal or neural foraminal stenosis. L1-2:There is disc space narrowing, irregular degenerative endplate change, and disc desiccation as w ell as bilateral facet hypertrophy. There is no significant central canal stenosis. Neural foramina are difficult to accurately assess secondary to artifact from postoperative hardware. There is at sigrid st mild bilateral neural foraminal stenosis suspected. L2-3:There is disc desiccation. No central canal stenosis. Bilateral facet hypertrophy. No significan t neural foraminal stenosis. L3-4:There is disc space narrowing and degenerative endplate change. Bilateral facet hypertrophy note d with probable mild bilateral neural foraminal stenosis. No central canal stenosis. L4-5: There is anterolisthesis of L4 on L5 measuring approximately 9 mm. There is disc desiccation an d disc space narrowing with bilateral facet hypertrophy. Mild/moderate bilateral neural foraminal stenosis suspected, right greater than left. No significant central canal stenosis. L5-S1:Bilateral facet hypertrophy. Disc desiccation. Mild bilateral neural foraminal stenosis. No jeremy tral canal stenosis. Image retroperitoneal structures demonstratean incompletely imaged T2 hyperintense lesion within the right kidney measuring 2.9 cm, imaged portions demonstrating signal characteristics consistent with a cyst.. Postcontrast imaging demonstrates no abnormal enhancement involving the nerve roots of the cauda equi na. No abnormal enhancement is seen involving the intervertebral discs or the imaged osseous structures. Small nonspecific postoperative fluid collection noted posterior to the midline L1 1 leve l measuring 1.8 x 0.8 cm. Similar small postoperative linear fluid collection posterior to the posterior elements with L2-3 level measures 2.3 x 0.4 cm. IMPRESSION: Multilevel postoperative and degenerative change within the lumbar spine as detailed above.
== END 2019-05-13 09:45 | disposition home or self-care (01) ==
LOC: BICMRI 09:44
PROVIDERS: ATTEND Nurse Practitioner Family
DX: M48.061 Spinal stenosis, lumbar region without neurogenic claudication (principal); M43.16 Spondylolisthesis, lumbar region; M47.816 Spondylosis without myelopathy or radiculopathy, lumbar region; Z98.1 Arthrodesis status
CPT/HCPCS: 72100; 72158; 82565; A9579

== ENCOUNTER 2019-07-20 13:17 | Outpatient (CLI) | payer MEDICARE, BC ==
--- NOTE | 2019-07-20 13:50 | RAD ---
Exam: Lumbar spine 4 views HISTORY: Extensive lumbar fusion. Lumbar spondylosis. FINDINGS: Bilateral transpedicular screws at T12, L1, L2, L3, L4 and L5. Disc prosthesis at L2-L3, L3 -L4 and L4-L5. Laminectomy defect from L2 through L5. Visualized sacrum and bony pelvis appear to be intact. Bilateral hip prostheses are noted Atherosclerosis of a nonaneurysmal aorta Spondylolisthesis: L3-L4: Neutral 5.5 mm of anterolisthesis; flexion 7.6 mm of anterolisthesis; extension 5.7 mm due to L4-L5: Neutral 8 mm of anterolisthesis; flexion 12.5 mm anterolisthesis; extension 10 mm of anterolis thesis IMPRESSION: Extensive fusion changes of the lumbar spine as described above. Disc prosthesis at L2-L3, L3-L4 and L4-L5. Spondylolisthesis as above.
== END 2019-07-20 13:18 | disposition home or self-care (01) ==
LOC: RAD 13:17
PROVIDERS: ATTEND Nurse Practitioner Family
DX: M47.816 Spondylosis without myelopathy or radiculopathy, lumbar region (principal); M43.16 Spondylolisthesis, lumbar region; Z98.1 Arthrodesis status
CPT/HCPCS: 72110

== ENCOUNTER 2019-07-22 06:44 | Outpatient (CLI) | payer MEDICARE, BC ==
[2019-07-22 11:57] LABS: #Basophils 0.1 thou/uL (0.0-0.2); #Eosinphils 0.3 thou/uL (0.0-0.7); #Lymphocytes 1.9 thou/uL (1.20-3.40); #Monocytes 0.6 thou/uL (0.11-0.59); #Neutrophils 2.7 thou/uL (1.40-6.50); %Basophils 1.6 % (0.0-1.0); %Eosinophils 5.8 % (0.0-10.0); %Lymphocytes 34.3 % (21.0-51.0); %Neutrophils 48.3 % (42.0-75.0); Hemoglobin 12.8 g/dL (12.0-16.0); Mean Corpuscular HGB CONC 33.8 g/dL (32.0-36.0); Mean Corpuscular Hemoglobin 30.4 pg (27.0-31.0); Mean Platelet Volume 9.2 fL (7.4-10.4); Platelet Count 143 thou/uL (130-400); RBC Distribution Width 12.5 % (11.5-14.5); Red Blood Cell (RBC) Count 4.22 mill/uL (4.20-5.40); White Blood Cell (WBC) Count 5.5 thou/uL (4.8-10.8)
[2019-07-22 12:04] LABS: Bacteria/HPF 2+ HPF (None Seen); Bilirubin Negative (Negative); Blood, Urine Negative (Negative); Clarity Turbid (Clear); Glucose, Urine (Dipstick) Normal (Negative); Leukocyte 500 Leu/uL (Negative); Nitrite 2+ (Negative); Protein, Urine (Dipstick) 10 mg/dL (Neg-Trace); RBC/HPF 0-3 HPF (0-3); Squamous Epithelial 0-3 HPF (0-3); Urobilinogen Normal mg/dL (Less than 2); WBC/HPF Greater than 50 HPF (0-3)
[2019-07-22 12:35] LABS: Anion Gap 16 mmol/L (10-20); BUN (Urea Nitrogen) 19 mg/dL (9.8-20.1); Calc. Creatinine Clearance 0 mL/min (70-130); Calcium 9.5 mg/dL (7.8-10.44); Carbon Dioxide 22 mmol/L (23-31); Chloride 101 mmol/L (98-107); Estimated GFR-MDRD 62; Glucose 174 mg/dL (83-110); Potassium 5.6 mmol/L (3.5-5.1); Sodium 133 mmol/L (136-145)
--- NOTE | 2019-07-23 16:38 | EKG ---
Test Reason : Blood Pressure : / mmHG Vent. Rate : 063 BPM Atrial Rate : 063 BPM P-R Int : 142 ms QRS Dur : 096 ms QT Int : 406 ms P-R-T Axes : 050 093 -29 degrees QTc Int : 415 ms Undetermined rhythm Rightward axis Anterior infarct , age undetermined cannot be excluded Please repeat this ECG. Abnormal ECG Confirmed by MICAH ALVARADO ([id number]) on 07/23/2019 4:38:22 PM Referred By: YENI Confirmed By:MICAH ALVARADO
== END 2019-07-22 06:45 | disposition home or self-care (01) ==
LOC: LABBT 06:44
PROVIDERS: ATTEND Orthopaedic Surgery Hand Surgery
DX: Z01.818 Encounter for other preprocedural examination (principal); M65.332 Trigger finger, left middle finger; M65.342 Trigger finger, left ring finger
CPT/HCPCS: 80048; 81001; 85025; 93005; 93010

== ENCOUNTER 2019-07-24 08:22 | Day surgery (SDC) | payer MEDICARE, BC ==
[2019-07-22 11:03] VITALS: BMI 36.1
[2019-07-24] MEDS ORDERED: Bupivacaine PF 0.5% 30 ML VIAL ONE (08:45)
[2019-07-24] MEDS ORDERED: Bacitracin Zinc Ointment 30 gm TUBE ONE (08:45)
[2019-07-24] MEDS ORDERED: Betamet Acet/Betamet Na Ph 30 MG/5 ML VIAL ONE (08:45)
[2019-07-24] MEDS ORDERED: Levofloxacin 500 mg/D5W 100 ml Premix Bag ONE (08:53)
[2019-07-24] MEDS ORDERED: Fentanyl 100 MCG/2 ML VIAL ONE (08:55)
[2019-07-24] MEDS ORDERED: Midazolam HCl 2 mg/2 ml Vial ONE (09:25)
[2019-07-24] MEDS ORDERED: EPHEDRINE 25 MG/5 ML SYRINGE ONE (10:21)
[2019-07-24] MEDS ORDERED: PROPOFOL 200 MG/20 ML VIAL ONE (10:21)
[2019-07-24] MEDS ORDERED: PHENYLEPHRINE-NS 100 MCG/ML 10 ML SYRINGE ONE (10:21)
[2019-07-24] MEDS ORDERED: Ondansetron PF 4 MG/2 ML Vial ONE (10:21)
[2019-07-24] MEDS ORDERED: Labetalol HCl 100 MG/20 ML VIAL ONE (10:21)
[2019-07-24] MEDS ORDERED: Ketorolac Tromethamine 30 MG/ML VIAL ONE (10:21)
[2019-07-24] MEDS ORDERED: Lidocaine 1% PF 5 ML VIAL ONE (10:21)
--- NOTE | 2019-07-24 15:17 | OP ---
DATE OF PROCEDURE: 07/24/2019 ANESTHESIA: Rudolph Hobbs MD, [place] Anesthesia, General, LMA technique augmented by 30 mL total of 0.5% Marcaine by 10 mL on small finger incision, 20 on the intermediate ring and middle finger incision. COMPLICATIONS: None. TOURNIQUET TIME: 18 minutes. ESTIMATED BLOOD LOSS: 5 mL. DESCRIPTION OF PROCEDURE: After successful general endotracheal anesthesia, the limb was prepped and draped. She had the incisions outlined, one on the very ulnar side of the small finger and then one incision, almost 2 cm centered between the ring finger and the long finger to develop a plane to take care of both of these with one incision. We first did the small finger, carried this through the skin and subcutaneous tissue to identify the neurovascular bundle and protected it. Saw the A1 wandy with blunt dissection, in here it was scarified and had small ganglion. We opened it in the midline with Maynard blade and protected the neurovascular bundle. Inspected the tendons, had a small amount of synovitis which was resected. There were no other ganglions deep. We then used the intermediate incision in the interval between the ring finger and the middle finger. We carried it through skin and subcutaneous tissue and then first identified the ring finger, digital nerve in between them and protected it. We then opened the sheath in the same fashion we had done for the small finger. It was also very thick and small amount of ganglion and there was small amount of synovitis, this was released as well. We then protected the common digital nerve between the two, rotated towards the long finger and it was here that we did the same type of release. All three tendons moved without any crepitance or catching or triggering. We placed 2 mL of Celestone in the small finger wound and then 3 in the intermediate ring and middle finger wound. We closed them all after releasing tourniquet, obtained hemostasis with a simple 4-0 nylon and the patient left the operating room with a total of 30 ml of 0.5% Marcaine block and no evidence of anesthetic or operative complications. Job ID: [id number]
== END 2019-07-24 12:35 | disposition home or self-care (01) ==
LOC: SDC 08:22
PROVIDERS: ATTEND Orthopaedic Surgery Hand Surgery
PROC: 0LN80ZZ Release Left Hand Tendon, Open Approach (ICD-10-PCS; principal; 2019-07-24)
PROC: 0LN80ZZ Release Left Hand Tendon, Open Approach (ICD-10-PCS; 2019-07-24)
PROC: 0LN80ZZ Release Left Hand Tendon, Open Approach (ICD-10-PCS; 2019-07-24)
PROC: 0LB80ZZ Excision of Left Hand Tendon, Open Approach (ICD-10-PCS; 2019-07-24)
PROC: 0RBX0ZZ Excision of Left Finger Phalangeal Joint, Open Approach (ICD-10-PCS; 2019-07-24)
DX: M65.332 Trigger finger, left middle finger (principal); M65.342 Trigger finger, left ring finger; M65.352 Trigger finger, left little finger; M67.442 Ganglion, left hand; M65.842 Other synovitis and tenosynovitis, left hand; M18.0 Bilateral primary osteoarthritis of first carpometacarpal joints; G56.23 Lesion of ulnar nerve, bilateral upper limbs; I10 Essential (primary) hypertension; E78.5 Hyperlipidemia, unspecified; E11.9 Type 2 diabetes mellitus without complications; G89.29 Other chronic pain; M54.5 Low back pain; G47.00 Insomnia, unspecified; F32.9 Major depressive disorder, single episode, unspecified; E55.9 Vitamin D deficiency, unspecified; E66.9 Obesity, unspecified; Z68.36 Body mass index [BMI] 36.0-36.9, adult; Z79.2 Long term (current) use of antibiotics; Z79.82 Long term (current) use of aspirin; Z79.84 Long term (current) use of oral hypoglycemic drugs; Z79.899 Other long term (current) drug therapy; Z88.5 Allergy status to narcotic agent; Z88.8 Allergy status to other drugs, medicaments and biological substances; Z98.890 Other specified postprocedural states
CPT/HCPCS: J0690; J0702; J1885; J1956; J2001; J2250; J2405; J2704; J3010; J3490; S0020

== ENCOUNTER 2019-08-11 13:02 | Outpatient (CLI) | payer MEDICARE, BC ==
--- NOTE | 2019-08-11 13:44 | RAD ---
4 views cervical spine: 08/11/2019 COMPARISON: 05/12/2019 HISTORY: Cervical radiculopathy, prior cervical spine surgery FINDINGS: Anterior discectomy and fusion hardware noted at the C4-5/C5-6 level, stable when compared to the prior exam. No prevertebral soft tissue swelling. Open-mouth odontoid view demonstrates a normal-appearing dens and C1-2 articulation. There is mild anterolisthesis at C2-3 and C3-4 measuring approximately 2 mm and 3 mm respectively. No prevertebral soft tissue swelling noted. IMPRESSION: Postoperative and degenerative change within the cervical spine as detailed above.
== END 2019-08-11 13:03 | disposition home or self-care (01) ==
LOC: TBSIIMAG 13:02
PROVIDERS: ATTEND Neurological Surgery
DX: M47.22 Other spondylosis with radiculopathy, cervical region (principal); Z98.1 Arthrodesis status
CPT/HCPCS: 72040

== ENCOUNTER 2020-02-11 07:31 | Outpatient (CLI) | payer MEDICARE, BC, OTHER ==
[2020-02-11 14:41] LABS: #Basophils 0.1 thou/uL (0.0-0.2); #Eosinphils 0.2 thou/uL (0.0-0.7); #Lymphocytes 1.6 thou/uL (1.20-3.40); #Monocytes 0.4 thou/uL (0.11-0.59); #Neutrophils 2.8 thou/uL (1.40-6.50); %Basophils 1.4 % (0.0-1.0); %Eosinophils 3.4 % (0.0-10.0); %Lymphocytes 32.1 % (21.0-51.0); %Monocytes 7.7 % (0.0-10.0); %Neutrophils 55.4 % (42.0-75.0); Hemoglobin 13.4 g/dL (12.0-16.0); Mean Corpuscular HGB CONC 33.8 g/dL (32.0-36.0); Mean Corpuscular Hemoglobin 31.4 pg (27.0-31.0); Mean Platelet Volume 8.6 fL (7.4-10.4); Platelet Count 161 thou/uL (130-400); RBC Distribution Width 13.2 % (11.5-14.5); Red Blood Cell (RBC) Count 4.25 mill/uL (4.20-5.40); White Blood Cell (WBC) Count 5.1 thou/uL (4.8-10.8)
[2020-02-11 14:45] LABS: Bacteria/HPF None Seen HPF (None Seen); Bilirubin Negative (Negative); Blood, Urine Negative (Negative); Clarity Clear (Clear); Glucose, Urine (Dipstick) Normal (Negative); Ketone, Urine Negative (Negative); Leukocyte Negative Leu/uL (Negative); Nitrite Negative (Negative); Protein, Urine (Dipstick) Negative (Neg-Trace); RBC/HPF 0-3 HPF (0-3); Specific Gravity, Urine 1.009 (1.002-1.036); Squamous Epithelial 0-3 HPF (0-3); Urobilinogen Normal mg/dL (Less than 2); WBC/HPF 0-3 HPF (0-3); pH, Urine 6.5 (5.0-9.0)
[2020-02-11 14:59] LABS: Anion Gap 13 mmol/L (10-20); BUN (Urea Nitrogen) 16 mg/dL (9.8-20.1); Calc. Creatinine Clearance 0 mL/min (70-130); Calcium 9.4 mg/dL (7.8-10.44); Carbon Dioxide 26 mmol/L (23-31); Chloride 98 mmol/L (98-107); Estimated GFR-MDRD 63; Glucose 122 mg/dL (83-110); Potassium 4.8 mmol/L (3.5-5.1); Sodium 132 mmol/L (136-145)
[2020-02-12 12:22] LABS: SARS-CoV-2 MS2 Positive; SARS-CoV-2 N Gene Negative; SARS-CoV-2 S Gene Negative; SARS-CoV-2 by NAA Not Detected (NotDetected); SARS-CoV-2 orf1ab Negative
== END 2020-02-11 07:32 | disposition home or self-care (01) ==
LOC: LABBT 07:31
PROVIDERS: ATTEND Orthopaedic Surgery Hand Surgery
DX: Z01.812 Encounter for preprocedural laboratory examination (principal); G56.02 Carpal tunnel syndrome, left upper limb; Z20.828 Contact with and (suspected) exposure to other viral communicable diseases
CPT/HCPCS: 80048; 81001; 85025; U0003; 87635

== ENCOUNTER 2020-02-15 11:35 | Observation (INO) | payer MEDICARE, BC ==
[~2020-02-15 11:35] MED LIST changes: +Dexamethasone 20 MG/5 ML VIAL ONE; +EPHEDRINE 25 MG/5 ML SYRINGE ONE; +Lidocaine 1% PF 5 ML VIAL ONE; +Ondansetron PF 4 MG/2 ML Vial ONE; +PROPOFOL 200 MG/20 ML VIAL ONE; -Prevnar 13-Val Conj/PF 0.5 ML SYRINGE IM ONE
[2020-02-15] MEDS ORDERED: Fentanyl 100 MCG/2 ML VIAL ONE ×4 (13:22→17:34)
[2020-02-15] MEDS ORDERED: Bupivacaine PF 0.5% 30 ML VIAL ONE (13:49)
[2020-02-15] MEDS ORDERED: Betamet Acet/Betamet Na Ph 30 MG/5 ML VIAL ONE (13:49)
[2020-02-15] MEDS ORDERED: Sodium Chloride 0.9% 10 ML ONE (13:49)
[2020-02-15] MEDS ORDERED: Bacitracin Zinc Ointment 30 gm TUBE ONE (13:50)
[2020-02-15] MEDS ORDERED: Ketorolac Tromethamine 30 MG/ML VIAL ONE (17:12)
[2020-02-15] MEDS ORDERED: Ondansetron PF 4 MG/2 ML Vial IV PRN (18:19)
[2020-02-15] MEDS ORDERED: Bisacodyl 10 MG SUPP PR PRN (18:19)
[2020-02-15] MEDS ORDERED: Promethazine HCl 25 MG/ML VIAL IM PRN (18:19)
[2020-02-15] MEDS ORDERED: Acetaminophen 325 MG TAB PO PRN (18:19)
[2020-02-15] MEDS ORDERED: Morphine 2 MG/ML VIAL SLOW IVP PRN (18:19)
[2020-02-15] MEDS ORDERED: traMADol HCl 50 MG TAB PO PRN (18:19)
[2020-02-15] MEDS ORDERED: Meperidine HCl/PF 25 MG/ML VIAL IM PRN (18:29)
[2020-02-15] MEDS ORDERED: Communication Order-Pharmacy FS SCH (18:30)
[2020-02-15] MEDS ORDERED: TETANUS AND DIPHTHERIA TOX/PF 0.5 ML DISP.SYRIN IM SCH (18:30)
[2020-02-15] MEDS: Vancomycin 1 GM in Premix Bag 1 BAG IVPB SCH (20:08)
[2020-02-15] MEDS: Aspirin 81 mg Enteric Coated Tablet PO SCH (20:08)
[2020-02-15] MEDS: Acetaminophen/Codeine 30-300mg Tablet PO PRN (20:08)
[2020-02-15] MEDS: Fentanyl 100 MCG/2 ML VIAL SLOW IVP PRN (20:09)
[2020-02-15 20:16] VITALS: BMI 36.1
[2020-02-16] MEDS: Fentanyl 100 MCG/2 ML VIAL SLOW IVP PRN (04:47)
[2020-02-16] MEDS: Acetaminophen/Codeine 30-300mg Tablet PO PRN ×2 (04:48→10:03)
[2020-02-16] MEDS: Vancomycin 1 GM in Premix Bag 1 BAG IVPB SCH (09:15)
[2020-02-16] MEDS: Aspirin 81 mg Enteric Coated Tablet PO SCH (10:03)
[2020-02-16 12:47] VITALS: BP 158/73; TEMP 98
--- NOTE | 2020-02-16 13:56 | OP ---
DATE OF PROCEDURE: 02/15/2020 PREOPERATIVE DIAGNOSES: 1. Left carpal tunnel syndrome. 2. Left pronator tunnel syndrome. FINDINGS: 1. A very tight pronator area, some tightness at the arcade of the superficialis and some of the compression as well, often four distinct spots of compression. 2. Left carpal tunnel transcarpal ligament reformation over 6 mm area causing intense constriction with erythema and flattening of the nerve as well as some thickening and reformation of the distal forearm fascia. PROCEDURES: 1. Left pronator teres release/median nerve neuroplasty at the proximal arm, forearm, and elbow. 2. Left carpal tunnel release and median nerve neuroplasty at the wrist. TOURNIQUET TIME: Would be 49 minutes total. ESTIMATED BLOOD LOSS: 10 cc. DESCRIPTION OF PROCEDURE: After successful general endotracheal anesthesia, the limb was prepped and draped. The patient had time-out done appropriately. We then gave after outlining a lazy made curvilinear incision centered slightly medial just radial to the brachialis pulse at the antecubital fossa and then coursing for approximately 8 cm distally and the previous carpal tunnel incision outlined with extension 5 mm distal and 6 to 7 mm proximal just to the edge of the volar wrist flexion crease. We exsanguinated the limb, inflated tourniquet to 250 mmHg pressure after giving a total of 20 mL of 0.5% Marcaine at the pronator site and 10 at the carpal tunnel site. We first entered the pronator site using the previous incision with a sharp knife. Dissected down saving three limbs of the cutaneous nerve branches and then going deep to that to release the fascia. We then dissected between the superficial radial nerve and the blood vessels, radial aspect of the proximal forearm and found the superficial pronator tendon. We then identified it slightly more proximal to the wound and distal, performed a Z-lengthening and once this released, decreased tension on the remaining fascia muscles. We then went proximal to this, just distal to the lacertus, dissected through the lacertus fascia, and then found the interval between the flexor pronator muscles and the vascular bundle until we found the median nerve very deep in the forearm. We released the fascia to see it completely. We then began by releasing several tight bands along with some approximately 1 cm of the lacertus fibrosus. We dissected from here until we saw the branches to the flexor pronator and we salvaged them, but released several tight fascial bands. At this point, reached the bifurcation of the interosseous nerve from the radial side and then continued releasing the fascia. We now had released the deep fascia arcade, and we reached the level of the pronator and superficialis arch. Superficialis arch had minimal tension, but it was released. We had one blood vessel that we released as well. Finally, for the primary pronator, we recessed this over a 3 cm area to relax tension here as part of pronator release as the had already been released. Now, there was no undue tension on the nerve at the site. We placed 3 cc of Celestone along the nerve course, placed a wet Ray-Cesar sponge, and then approached the carpal tunnel. Using the entire length of this incision as outlined above, carried through skin and subcutaneous tissue and then we dissected sharply until we reached the transverse carpal ligament. The remnant had about 1 to 1.5 cm thick had reformed and was doing hourglass type compression from ulnar to radial nearly flattening the nerves . We released this with a [place] blade under direct visualization. We then released all distal to this with combination of tenotomy scissors and [place] and we made sure to spare all the nerve branches. We then resected 5 mm of transverse carpal ligament to ensure it would not regrow. We extended the incision 5 mm proximally until we could see all of the palmar fascia of the forearm as well as the last part of the transverse carpal ligament and under direct visualization, released this completely, protecting the nerve. The nerve was protected. There was a complete release and there was no tenosynovitis seen. We now placed 3 mL of Celestone over the median nerve here, we then released the tourniquet, had excellent hemostasis at both wounds. We then closed the carpal tunnel incision while the pronator area remained packed with interrupted 4-0 nylon in a mattress pattern. We then elevated the packing completely, sponge count correct, and then began to close the pronator incision with a running 4-0 Monocryl followed by 3-0 nylon interrupted mattress pattern for the epidermal closure. Bacitracin, Adaptic, 4 x 4, and soft dressing along with Kerlix and Armando wrap was applied and the patient left the operating room with sling and no evidence of anesthetic or operative complication. Job ID: [id number]
--- NOTE | 2020-02-18 14:29 | EKG ---
Test Reason : PREOP Blood Pressure : / mmHG Vent. Rate : 060 BPM Atrial Rate : 060 BPM P-R Int : 162 ms QRS Dur : 098 ms QT Int : 430 ms P-R-T Axes : 036 -48 -26 degrees QTc Int : 430 ms Normal sinus rhythm Left axis deviation Nonspecific ST abnormality Abnormal ECG Confirmed by YULIA IVY M.D. ([id number]) on 02/18/2020 2:29:52 PM Referred By: YENI Confirmed By:YULIA IVY M.D.
== END 2020-02-16 15:30 | disposition home or self-care (01) ==
LOC: SDC 11:35 → SURG A 18:23
PROVIDERS: ADMIT Orthopaedic Surgery Hand Surgery; ATTEND Orthopaedic Surgery Hand Surgery
PROC: 01N50ZZ Release Median Nerve, Open Approach (ICD-10-PCS; principal; 2020-02-15)
PROC: 01N50ZZ Release Median Nerve, Open Approach (ICD-10-PCS; 2020-02-15)
DX: G56.02 Carpal tunnel syndrome, left upper limb (principal); G56.12 Other lesions of median nerve, left upper limb; I10 Essential (primary) hypertension; E11.9 Type 2 diabetes mellitus without complications; E78.5 Hyperlipidemia, unspecified; G89.29 Other chronic pain; M54.5 Low back pain; F32.9 Major depressive disorder, single episode, unspecified; E66.9 Obesity, unspecified; Z68.36 Body mass index [BMI] 36.0-36.9, adult; Z79.82 Long term (current) use of aspirin; Z79.84 Long term (current) use of oral hypoglycemic drugs; Z88.5 Allergy status to narcotic agent; Z88.8 Allergy status to other drugs, medicaments and biological substances
CPT/HCPCS: 93005; 93010; 96372; 96374; 96375; 96376; G0378; J0690; J0702; J1100; J1885; J2175; J2405; J2704; J3010; J3370; J3490; S0020

== ENCOUNTER 2020-08-01 11:52 | Day surgery (SDC) | payer MEDICARE, BC ==
[2020-07-29 16:01] VITALS: BMI 33.2
[~2020-08-01 11:52] MED LIST changes: -EPHEDRINE 25 MG/5 ML SYRINGE ONE; -Lidocaine 1% PF 5 ML VIAL ONE
[2020-08-01] MEDS ORDERED: Fentanyl 100 MCG/2 ML VIAL ONE ×3 (13:33→15:12)
[2020-08-01] MEDS ORDERED: Bupivacaine PF 0.5% 30 ML VIAL ONE (13:49)
[2020-08-01] MEDS ORDERED: Betamet Acet/Betamet Na Ph 30 MG/5 ML VIAL ONE ×2 (13:49→14:21)
[2020-08-01] MEDS ORDERED: Bacitracin Zinc Ointment 30 gm TUBE ONE (13:50)
[2020-08-01] MEDS ORDERED: Ketorolac Tromethamine 30 MG/ML VIAL ONE (14:57)
[2020-08-01] MEDS ORDERED: Lisinopril 10 MG TAB ONE (15:10)
[2020-08-01] MEDS ORDERED: Lisinopril 20 MG TAB PO SCH (15:30)
[2020-08-01] MEDS ORDERED: hydrALAZINE 20 MG/ML VIAL ONE (15:50)
[2020-08-01] MEDS ORDERED: HYDROcodone/Acetaminophen 5/325 mg Tablet ONE (16:41)
--- NOTE | 2020-08-01 19:42 | OP ---
DATE OF PROCEDURE: 08/01/2020 PREOPERATIVE DIAGNOSIS: Right carpal tunnel syndrome. POSTOPERATIVE DIAGNOSIS: Right carpal tunnel syndrome. FINDINGS: Very tight transverse carpal ligament over 15 mm segment in the center of the carpal canal, where the nerve was actually from palmar to dorsal compressed almost in an S formation while the remaining portion of the transverse carpal ligament, only had a small residual from previous surgery. PROCEDURE PERFORMED: Right carpal tunnel release. SPECIMEN REMOVED: None. TOURNIQUET TIME: 60 minutes. ESTIMATED BLOOD LOSS: 10 mL. INJECTABLE: mL of 0.5% Marcaine given before the incision without epinephrine and 4 mL Celestone dripped over the area, where the nerve was purple and had stippling and early allograft formation. INDICATION: The patient with recurrent numbness and tingling. It is very symptomatic on the right side, more than left. Positive electrodiagnostic and clinical exam for carpal tunnel syndrome despite a previous release. DESCRIPTION OF PROCEDURE: After successful general endotracheal anesthesia, limb was prepped and draped. We then found the original surgical incision, gave her 10 mL of 0.5% Marcaine beginning 1.5 cm proximal to and then going 5 mm distal to the previous incision on both radial and ulnar aspect. We then exsanguinated the limb, inflated tourniquet to 250 mmHg pressure and made the incision. We carried to the skin and subcutaneous tissue to reach the remnant transcarpal ligament and proximal 1/3rd of the incision and in the middle portion of incision, we could see a very tight transcarpal ligament creating the S shaped formation we described above. It was released under direct visualization here with a [place] blade and combination of tenotomy scissors. There was not much transcarpal ligament remnant left distal to this, so we resected the ulnar half of this limb, protecting the digital nerve branches. We then did the same type for procedure using combination of [place] blade tenotomy scissors on the proximal aspect of the incision and the distal forearm fascia. Once this was done, we had excellent movement of the nerve with the tendon glide. No tenosynovitis was seen. We placed 3 mL of Celestone in the wound, inflated the tourniquet and obtained hemostasis. We closed the wound with interrupted 4-0 nylon mattress pattern and the patient left the operating room without evidence of anesthetic or operative complication. Job ID: [id number]
== END 2020-08-01 16:55 | disposition home or self-care (01) ==
LOC: SDC 11:52
PROVIDERS: ATTEND Orthopaedic Surgery Hand Surgery
PROC: 01N50ZZ Release Median Nerve, Open Approach (ICD-10-PCS; principal; 2020-08-01)
DX: G56.01 Carpal tunnel syndrome, right upper limb (principal); I10 Essential (primary) hypertension; E11.9 Type 2 diabetes mellitus without complications; Z79.82 Long term (current) use of aspirin; Z79.84 Long term (current) use of oral hypoglycemic drugs; Z79.899 Other long term (current) drug therapy; Z88.5 Allergy status to narcotic agent; Z88.6 Allergy status to analgesic agent
CPT/HCPCS: J0360; J0690; J0702; J1100; J1885; J2405; J2704; J3010; J3490; S0020

== ENCOUNTER 2021-01-27 09:07 | Outpatient (CLI) | payer MEDICARE, BC | END 2021-01-27 09:08 | disposition home or self-care (01) | LOC: PET 09:07 | PROVIDERS: ATTEND Internal Medicine Hematology & Oncology | DX: C21.0 Malignant neoplasm of anus, unspecified (principal); N94.89 Other specified conditions associated with female genital organs and menstrual cycle; E07.9 Disorder of thyroid, unspecified | CPT/HCPCS: 78815; A9552 ==

== ENCOUNTER 2021-02-08 12:50 | Outpatient (CLI) | payer MEDICARE, BC ==
[2020-07-27 15:40] LABS: #Basophils 0.1 10x3/uL (0.0-0.2); #Eosinphils 0.3 10x3/uL (0.0-0.5); #Monocytes 0.4 10x3/uL (0.0-1.1); %Basophils 0.9 % (0.0-2.0); %Eosinophils 4.7 % (0.0-6.0); %Lymphocytes 31.9 % (18.0-47.0); %Monocytes 7.1 % (0.0-10.0); %Neutrophils 54.9 % (40.0-75.0); Hemoglobin 12.4 g/dL (12.0-15.5); Mean Corpuscular HGB CONC 32.9 g/dL (32.0-36.0); Mean Corpuscular Volume 91.3 fl (81.6-98.3); Mean Platelet Volume 11.2 fl (7.4-10.4); Platelet Count 168 10x3/uL (150-450); RBC Distribution Width 13.7 % (11.5-14.5); Red Blood Cell (RBC) Count 4.13 10x6/uL (3.90-5.03); White Blood Cell (WBC) Count 5.5 10x3/uL (3.5-10.5)
[2020-07-27 15:59] LABS: Anion Gap 15 mmol/L (10-20); BUN (Urea Nitrogen) 17 mg/dL (9.8-20.1); Calc. Creatinine Clearance 0 mL/min (70-130); Carbon Dioxide 25 mmol/L (23-31); Chloride 103 mmol/L (98-107); Glucose 143 mg/dL (83-110); Potassium 4.4 mmol/L (3.5-5.1); Sodium 139 mmol/L (136-145)
[2020-07-27 16:27] LABS: Bilirubin Neg (Negative); Blood, Urine 50 (Negative); Clarity Slightly Cloudy (Clear); Glucose, Urine (Dipstick) Normal (Negative); Ketone, Urine Negative (Negative); Leukocyte 500 (Negative); Nitrite Positive (Negative); Protein, Urine (Dipstick) 30 mg/dl (Neg-Trace); Specific Gravity, Urine 1.015 (1.002-1.036); Urobilinogen Normal mg/dL (Less than 2)
[2020-07-27 18:16] LABS: Bacteria/HPF 2+ HPF (None Seen); Renal Epithelial 0-3 HPF (None Seen); Squamous Epithelial 0-3 HPF (0-3); WBC/HPF Greater Than 50 HPF (0-3)
[2020-07-28 05:52] LABS: SARS-CoV-2 PCR by NAA Not Detected (NotDetected)
[2021-02-08 14:59] LABS: #Basophils 0.1 10x3/uL (0.0-0.2); #Eosinphils 0.3 10x3/uL (0.0-0.5); #Monocytes 0.4 10x3/uL (0.0-1.1); #Neutrophils 3.2 10x3/uL (1.5-8.4); %Basophils 0.9 % (0.0-2.0); %Eosinophils 4.7 % (0.0-6.0); %Monocytes 6.8 % (0.0-10.0); %Neutrophils 58.4 % (40.0-75.0); Hemoglobin 13.5 g/dL (12.0-15.5); Mean Corpuscular HGB CONC 33.2 g/dL (32.0-36.0); Mean Corpuscular Hemoglobin 30.4 pg (27.0-33.0); Mean Corpuscular Volume 91.7 fl (81.6-98.3); Mean Platelet Volume 11.1 fl (7.4-10.4); Platelet Count 156 10x3/uL (150-450); RBC Distribution Width 12.6 % (11.5-14.5); Red Blood Cell (RBC) Count 4.44 10x6/uL (3.90-5.03); White Blood Cell (WBC) Count 5.5 10x3/uL (3.5-10.5)
[2021-02-08 15:51] LABS: Anion Gap 16 mmol/L (10-20); BUN (Urea Nitrogen) 22 mg/dL (9.8-20.1); Calc. Creatinine Clearance 0 mL/min (70-130); Calcium 10.4 mg/dL (7.8-10.44); Carbon Dioxide 27 mmol/L (23-31); Chloride 99 mmol/L (98-107); Glucose 134 mg/dL (83-110); Potassium 5.2 mmol/L (3.5-5.1); Sodium 137 mmol/L (136-145)
[2021-02-08 17:15] LABS: SARS-CoV-2 NAA Rapid Test Not Detected (NotDetected)
== END 2021-02-08 12:51 | disposition home or self-care (01) ==
LOC: LABBT 12:50
PROVIDERS: ATTEND Specialist
DX: Z01.818 Encounter for other preprocedural examination (principal); G56.01 Carpal tunnel syndrome, right upper limb; Z20.822 Contact with and (suspected) exposure to COVID-19
CPT/HCPCS: 71046; 80048 ×2; 81001; 85025 ×2; 93005; U0002; U0003; U0005; 77014; 77334; 93010

== ENCOUNTER 2021-02-09 07:34 | Day surgery (SDC) | payer MEDICARE, BC ==
[2021-02-08 09:54] VITALS: BMI 38.0
[2021-02-09] MEDS ORDERED: Ketorolac Tromethamine 30 MG/ML VIAL ONE (07:55)
[2021-02-09] MEDS ORDERED: Acetaminophen 500 MG TAB ONE (07:55)
[2021-02-09] MEDS ORDERED: Lidocaine 1% (PF) 30 ML VIAL ONE (08:55)
[2021-02-09] MEDS ORDERED: Bupivacaine 0.25% HCL 30 ML VIAL ONE (08:55)
[2021-02-09] MEDS ORDERED: Lidocaine 1% w/Epinephrine 1:100K 30 ML VIAL ONE (08:55)
[2021-02-09] MEDS ORDERED: Fentanyl 100 MCG/2 ML VIAL ONE (09:01)
[2021-02-09] MEDS ORDERED: Propofol 500 MG/50 ML VIAL ONE ×2 (09:02→09:10)
[2021-02-09] MEDS ORDERED: Dexmedetomidine 200 MCG/2 ML VIAL ONE (09:02)
[2021-02-09] MEDS ORDERED: Glycopyrrolate 0.2 MG/ML 5 ML SYRINGE ONE (09:14)
== END 2021-02-09 12:10 | disposition home or self-care (01) ==
LOC: SDC 07:34
PROVIDERS: ATTEND Specialist
PROC: 0JH63WZ Insertion of Totally Implantable Vascular Access Device into Chest Subcutaneous Tissue and Fascia, Percutaneous Approach (ICD-10-PCS; principal; 2021-02-09)
PROC: 02HV33Z Insertion of Infusion Device into Superior Vena Cava, Percutaneous Approach (ICD-10-PCS; 2021-02-09)
DX: C21.0 Malignant neoplasm of anus, unspecified (principal); I10 Essential (primary) hypertension; E78.5 Hyperlipidemia, unspecified; E11.9 Type 2 diabetes mellitus without complications; G89.29 Other chronic pain; M54.5 Low back pain; G47.00 Insomnia, unspecified; E66.9 Obesity, unspecified; Z68.38 Body mass index [BMI] 38.0-38.9, adult; Z79.82 Long term (current) use of aspirin; Z79.84 Long term (current) use of oral hypoglycemic drugs; Z79.899 Other long term (current) drug therapy; Z88.5 Allergy status to narcotic agent; Z88.6 Allergy status to analgesic agent; Z88.8 Allergy status to other drugs, medicaments and biological substances
CPT/HCPCS: 36561; 71045; C1788; J0690; J1642; J1885; J2001; J2704; J3010; S0020

== ENCOUNTER 2021-04-01 05:58 | Inpatient (IN) | payer MEDICARE, BC ==
[2021-04-01] MEDS ORDERED: Senokot S 8.6-50 MG TAB PO PRN (07:19)
[2021-04-01] MEDS ORDERED: Bisacodyl 5 MG TAB PO PRN (07:19)
[2021-04-01] MEDS ORDERED: Dextrose 50% Abboject 50 ML SYRINGE SLOW IVP PRN (07:27)
[2021-04-01] MEDS ORDERED: Dextrose 5% in Water 1,000 ML IV PRN (07:27)
[2021-04-01] MEDS ORDERED: Sodium Chloride 0.9% 1,000 ML IV SCH (07:30)
[2021-04-01] MEDS ORDERED: Magnesium 2 GM/50 ML 2 GM in Premix Bag 1 BAG IVPB SCH (08:00)
[2021-04-01] MEDS ORDERED: Cefepime 2 GM in Sodium Chloride 0.9% 100 ML IVPB SCH ×2 (08:15→12:00)
[2021-04-01] MEDS ORDERED: Vancomycin HCl 1 GM in Sodium Chloride 0.9% 250 ML 300 ML IVPB SCH ×2 (09:00→17:00)
[2021-04-01] MEDS ORDERED: Acetaminophen 325 MG TAB PO PRN (11:35)
[2021-04-01] MEDS ORDERED: Sodium Chloride 0.9% 500 ML IV SCH (12:00)
[2021-04-01] MEDS ORDERED: VANCOMYCIN 1.25 GM/250 ML BAG 1.25 GM in Premix Bag 1 BAG IVPB SCH (12:15)
[2021-04-01] MEDS: Sodium Chloride 0.9% 1,000 ML IV SCH ×2 (14:05→20:56)
[2021-04-01] MEDS ORDERED: FLU VACC QS2021-22(65YR UP)/PF 240 MCG/0.7 ML SYRINGE IM ONE (14:30)
[2021-04-01] MEDS ORDERED: Albumin 25% 25 GM/100 ML BOT IVPB SCH (14:30)
[2021-04-01] MEDS: HYDROcodone/Acetaminophen 10/325 mg Tablet PO PRN (15:56)
[2021-04-01] MEDS: Silver Sulfadiazine 50 GM TUBE TOP SCH (17:04)
[2021-04-01] MEDS ORDERED: Dextromethorphan Polistirex 30 MG/5 ML (89 ML BOTTLE) PO PRN ×2 (18:29→19:00)
[2021-04-01] MEDS: Benzonatate 100 MG CAP PO SCH (20:56)
[2021-04-01] MEDS: Atorvastatin Calcium 10 MG TAB PO SCH (20:56)
[2021-04-02] MEDS: Cefepime 2 GM in Sodium Chloride 0.9% 100 ML IVPB SCH (03:33)
[2021-04-02] MEDS: Sodium Chloride 0.9% 1,000 ML IV SCH (03:33)
[2021-04-02] MEDS: HYDROcodone/Acetaminophen 10/325 mg Tablet PO PRN ×4 (03:34→20:57)
[2021-04-02 05:48] LABS: Albumin 2.6 g/dL (3.4-4.8)
[2021-04-02 05:49] LABS: Chloride 110 mmol/L (98-107); Sodium 136 mmol/L (136-145)
[2021-04-02 05:50] LABS: Calcium 7.8 mg/dL (7.8-10.44)
[2021-04-02 05:51] LABS: Globulin 1.7 g/dL (2.4-3.5); Glucose 133 mg/dL (83-110); Protein, Total 4.3 g/dL (5.8-8.1); Triglycerides 144 mg/dL (Less than 150)
[2021-04-02 05:52] LABS: Bilirubin, Total 0.5 mg/dL (0.2-1.2); Carbon Dioxide 17 mmol/L (23-31)
[2021-04-02 05:54] LABS: Alkaline Phosphatase 46 U/L (40-110); Calc. Creatinine Clearance 50 mL/min (70-130); Phosphorus 3.6 mg/dL (2.3-4.7)
[2021-04-02 05:55] LABS: BUN (Urea Nitrogen) 49 mg/dL (9.8-20.1)
[2021-04-02 05:56] LABS: AST (SGOT) 16 U/L (5-34); Cardiac Risk 7.7 (Less than 4.5); Cholesterol 85 mg/dl (< 200 Desired); HDL Cholesterol 11 mg/dL (>60 Neg Risk); LDL Cholesterol, Calculated 45 mg/dL; Magnesium 1.6 mg/dL (1.6-2.6)
[2021-04-02 05:57] LABS: ALT (SGPT) 19 U/L (8-55)
[2021-04-02 06:04] LABS: CRP (Inflammatory) 32.41 mg/dL (= or < 0.5)
[2021-04-02 06:38] LABS: Anion Gap 12 mmol/L (10-20)
[2021-04-02] MEDS ORDERED: Potassium Chloride 20 MEQ TAB PO SCH (07:15)
[2021-04-02 08:07] LABS: Hemoglobin A1c 6.4 % (4.0-6.0)
[2021-04-02 08:21] LABS: Hemoglobin 7.5 g/dL (12.0-16.0); Mean Corpuscular HGB CONC 35.6 g/dL (32.0-36.0); Mean Corpuscular Hemoglobin 32.4 pg (27.0-31.0); Mean Corpuscular Volume 91.1 fL (78.0-98.0); RBC Distribution Width 14.3 % (11.5-14.5); Red Blood Cell (RBC) Count 2.31 mill/uL (4.20-5.40)
[2021-04-02 08:37] LABS: Band 10 % (5-11); Eosinophils 14 % (0-10); MDiff Complete? YES; Metamyelocyte 1 % (0-0); Monocytes 8 % (0-10); Neutrophil 67 % (42-75); Platelet Count 27 thou/uL (130-400); Platelet Morphology Comment Appears Decreased
[2021-04-02] MEDS: Benzonatate 100 MG CAP PO SCH ×3 (08:47→20:58)
[2021-04-02] MEDS: Silver Sulfadiazine 50 GM TUBE TOP SCH ×2 (08:49→20:59)
[2021-04-02] MEDS ORDERED: VANCOMYCIN 1.25 GM/250 ML BAG 1.25 GM in Premix Bag 1 BAG IVPB SCH (12:15)
[2021-04-02 12:56] LABS: Vancomycin, Random 6.6 ug/mL (See Comment)
[2021-04-02] MEDS: VANCOMYCIN 1.25 GM/250 ML BAG 1.25 GM in Premix Bag 1 BAG IVPB SCH ×3 (15:29→20:56)
[2021-04-02] MEDS ORDERED: Aluminum & Magnesium Hydroxide 60 ML, diphenhydrAMINE 150 MG, Lidocaine 2% Viscous Solu... SSW PRN ×2 (16:31→16:45)
[2021-04-02] MEDS: Atorvastatin Calcium 10 MG TAB PO SCH (20:58)
[2021-04-03] MEDS: Cefepime 2 GM in Sodium Chloride 0.9% 100 ML IVPB SCH ×2 (05:08→18:34)
[2021-04-03 05:30] LABS: Hemoglobin 7.6 g/dL (12.0-16.0); Mean Corpuscular HGB CONC 34.7 g/dL (32.0-36.0); Mean Corpuscular Hemoglobin 32.1 pg (27.0-31.0); Mean Corpuscular Volume 92.7 fL (78.0-98.0); Mean Platelet Volume 9.7 fL (7.4-10.4); Platelet Count 21 thou/uL (130-400); RBC Distribution Width 14.6 % (11.5-14.5); Red Blood Cell (RBC) Count 2.37 mill/uL (4.20-5.40); White Blood Cell (WBC) Count 2.9 thou/uL (4.8-10.8)
[2021-04-03 05:56] LABS: Anisocytosis SLIGHT = 6-15 cells (100X) (0-5/hpf); Band 17 % (5-11); Eosinophils 10 % (0-10); Lymphocytes 4 % (21-51); MDiff Complete? YES; Monocytes 4 % (0-10); Neutrophil 64 % (42-75); Platelet Morphology Comment Appears Decreased; Reactive Lymphocytes 1 % (0-10)
[2021-04-03 05:57] LABS: ALT (SGPT) 32 U/L (8-55); AST (SGOT) 25 U/L (5-34); Albumin 2.7 g/dL (3.4-4.8); Alkaline Phosphatase 56 U/L (40-110); Anion Gap 13 mmol/L (10-20); BUN (Urea Nitrogen) 35 mg/dL (9.8-20.1); Bilirubin, Total 0.6 mg/dL (0.2-1.2); Calc. Creatinine Clearance 67 mL/min (70-130); Carbon Dioxide 17 mmol/L (23-31); Chloride 110 mmol/L (98-107); Globulin 1.9 g/dL (2.4-3.5); Glucose 200 mg/dL (83-110); Magnesium 1.7 mg/dL (1.6-2.6); Phosphorus 2.3 mg/dL (2.3-4.7); Potassium 3.5 mmol/L (3.5-5.1); Protein, Total 4.6 g/dL (5.8-8.1); Sodium 136 mmol/L (136-145)
[2021-04-03] MEDS ORDERED: Potassium Chloride 20 MEQ TAB PO SCH (06:15)
[2021-04-03] MEDS ORDERED: Magnesium 2 GM/50 ML 2 GM in Premix Bag 1 BAG IVPB SCH (06:15)
[2021-04-03] MEDS: Diltiazem 125 MG in Sodium Chloride 0.9% 100 ML IVPB SCH (06:52)
[2021-04-03] MEDS: Benzonatate 100 MG CAP PO SCH ×3 (12:11→21:39)
[2021-04-03] MEDS: HYDROcodone/Acetaminophen 10/325 mg Tablet PO PRN (12:12)
[2021-04-03] MEDS: Silver Sulfadiazine 50 GM TUBE TOP SCH ×2 (12:13→21:40)
[2021-04-03] MEDS: hydrOXYzine 25 MG TAB PO PRN ×2 (12:16→21:39)
[2021-04-03] MEDS ORDERED: Amiodarone 200 MG TAB PO SCH (13:45)
[2021-04-03] MEDS ORDERED: Morphine 2 MG/ML VIAL SLOW IVP PRN (15:06)
[2021-04-03] MEDS ORDERED: Morphine 4 MG/ML VIAL SLOW IVP PRN ×2 (15:30→16:35)
[2021-04-03] MEDS ORDERED: Lorazepam 2 MG/ML VIAL SLOW IVP PRN (16:34)
[2021-04-03] MEDS ORDERED: Scopolamine 1.5 mg/72 hour Patch TD SCH (16:45)
[2021-04-03] MEDS: Morphine 4 MG/ML VIAL SLOW IVP PRN ×2 (18:35→21:38)
[2021-04-03] MEDS: Amiodarone 200 MG TAB PO SCH (21:39)
[2021-04-03] MEDS: Atorvastatin Calcium 10 MG TAB PO SCH (21:39)
[2021-04-03] MEDS: VANCOMYCIN 1.25 GM/250 ML BAG 1.25 GM in Premix Bag 1 BAG IVPB SCH (21:40)
[2021-04-03] MEDS: Simethicone Chewable 80 MG TAB PO SCH (21:40)
[2021-04-04] MEDS: Cefepime 2 GM in Sodium Chloride 0.9% 100 ML IVPB SCH (03:13)
[2021-04-04] MEDS: Diltiazem 125 MG in Sodium Chloride 0.9% 100 ML IVPB SCH (04:26)
[2021-04-04 04:53] LABS: Hemoglobin 7.2 g/dL (12.0-16.0); Mean Corpuscular HGB CONC 35.6 g/dL (32.0-36.0); Mean Corpuscular Hemoglobin 32.8 pg (27.0-31.0); Mean Corpuscular Volume 92.3 fL (78.0-98.0); Mean Platelet Volume 9.2 fL (7.4-10.4); Platelet Count 18 thou/uL (130-400); RBC Distribution Width 14.7 % (11.5-14.5); Red Blood Cell (RBC) Count 2.19 mill/uL (4.20-5.40); White Blood Cell (WBC) Count 2.6 thou/uL (4.8-10.8)
[2021-04-04 05:10] LABS: Band 6 % (5-11); Eosinophils 4 % (0-10); Hypochromia SLIGHT = 6-15 cells (100X) (0-5/hpf); Lymphocytes 6 % (21-51); MDiff Complete? YES; Neutrophil 84 % (42-75); Platelet Morphology Comment Appears Decreased
[2021-04-04 05:15] LABS: ALT (SGPT) 26 U/L (8-55); AST (SGOT) 13 U/L (5-34); Albumin 2.8 g/dL (3.4-4.8); Alkaline Phosphatase 57 U/L (40-110); Anion Gap 12 mmol/L (10-20); BUN (Urea Nitrogen) 24 mg/dL (9.8-20.1); Bilirubin, Total 0.6 mg/dL (0.2-1.2); Calc. Creatinine Clearance 72 mL/min (70-130); Calcium 8.3 mg/dL (7.8-10.44); Carbon Dioxide 20 mmol/L (23-31); Chloride 110 mmol/L (98-107); Globulin 1.8 g/dL (2.4-3.5); Glucose 153 mg/dL (83-110); Magnesium 1.8 mg/dL (1.6-2.6); Phosphorus 2.3 mg/dL (2.3-4.7); Potassium 3.9 mmol/L (3.5-5.1); Protein, Total 4.6 g/dL (5.8-8.1); Sodium 138 mmol/L (136-145)
[2021-04-04] MEDS ORDERED: Magnesium 2 GM/50 ML 2 GM in Premix Bag 1 BAG IVPB SCH (07:15)
[2021-04-04] MEDS ORDERED: Potassium Chloride 20 MEQ TAB PO SCH (08:00)
[2021-04-04] MEDS: Amiodarone 200 MG TAB PO SCH ×3 (08:26→22:10)
[2021-04-04] MEDS: Benzonatate 100 MG CAP PO SCH ×3 (08:27→22:10)
[2021-04-04] MEDS: Silver Sulfadiazine 50 GM TUBE TOP SCH ×2 (08:27→22:12)
[2021-04-04] MEDS: Morphine 4 MG/ML VIAL SLOW IVP PRN ×2 (10:43→17:11)
[2021-04-04] MEDS: HYDROcodone/Acetaminophen 10/325 mg Tablet PO PRN (12:08)
[2021-04-04] MEDS: HumaLOG 300 UNITS/3 ML VIAL SC PRN (12:09)
[2021-04-04] MEDS: Acetaminophen 325 MG TAB PO SCH ×3 (13:46→23:50)
[2021-04-04] MEDS ORDERED: traMADol HCl 50 MG TAB PO SCH (14:00)
[2021-04-04 20:24] LABS: Vancomycin, Trough 10.8 ug/mL
[2021-04-04] MEDS: Simethicone Chewable 80 MG TAB PO SCH (22:10)
[2021-04-04] MEDS: Lisinopril 20 MG TAB PO SCH (22:10)
[2021-04-04] MEDS: Doxycycline 100 MG CAP PO SCH (22:10)
[2021-04-04] MEDS: Atorvastatin Calcium 10 MG TAB PO SCH (22:11)
[2021-04-04] MEDS: Amoxicillin/Potassium Clav 875 MG TAB PO SCH (22:11)
[2021-04-04] MEDS: HYDROmorphone 2 MG TAB PO SCH (22:15)
[2021-04-05] MEDS: HYDROmorphone 2 MG TAB PO SCH ×5 (06:47→21:00)
[2021-04-05 07:34] LABS: Hemoglobin 7.1 g/dL (12.0-16.0); Mean Corpuscular HGB CONC 35.8 g/dL (32.0-36.0); Mean Corpuscular Hemoglobin 33.1 pg (27.0-31.0); Mean Corpuscular Volume 92.4 fL (78.0-98.0); Mean Platelet Volume 9.8 fL (7.4-10.4); Platelet Count 16 thou/uL (130-400); RBC Distribution Width 14.7 % (11.5-14.5); Red Blood Cell (RBC) Count 2.14 mill/uL (4.20-5.40); White Blood Cell (WBC) Count 1.6 thou/uL (4.8-10.8)
[2021-04-05 07:55] LABS: ALT (SGPT) 24 U/L (8-55); AST (SGOT) 14 U/L (5-34); Albumin 2.9 g/dL (3.4-4.8); Alkaline Phosphatase 59 U/L (40-110); Anion Gap 11 mmol/L (10-20); BUN (Urea Nitrogen) 19 mg/dL (9.8-20.1); Bilirubin, Total 0.6 mg/dL (0.2-1.2); Calc. Creatinine Clearance 79 mL/min (70-130); Calcium 8.6 mg/dL (7.8-10.44); Carbon Dioxide 22 mmol/L (23-31); Chloride 108 mmol/L (98-107); Globulin 1.9 g/dL (2.4-3.5); Glucose 160 mg/dL (83-110); Magnesium 1.6 mg/dL (1.6-2.6); Phosphorus 2.7 mg/dL (2.3-4.7); Potassium 4.1 mmol/L (3.5-5.1); Protein, Total 4.8 g/dL (5.8-8.1); Sodium 137 mmol/L (136-145)
[2021-04-05] MEDS: Acetaminophen 325 MG TAB PO SCH ×4 (08:56→23:49)
[2021-04-05] MEDS: Lisinopril 20 MG TAB PO SCH ×2 (08:57→21:01)
[2021-04-05] MEDS: Amiodarone 200 MG TAB PO SCH ×3 (08:57→21:00)
[2021-04-05] MEDS: Benzonatate 100 MG CAP PO SCH ×3 (08:57→20:59)
[2021-04-05] MEDS: Amoxicillin/Potassium Clav 875 MG TAB PO SCH ×2 (08:58→20:59)
[2021-04-05] MEDS: Doxycycline 100 MG CAP PO SCH ×2 (08:58→21:01)
[2021-04-05] MEDS: Silver Sulfadiazine 50 GM TUBE TOP SCH ×2 (09:04→22:31)
[2021-04-05 09:39] LABS: Band 12 % (5-11); Eosinophils 6 % (0-10); Lymphocytes 14 % (21-51); MDiff Complete? YES; Monocytes 10 % (0-10); Neutrophil 56 % (42-75); Platelet Morphology Comment Appears Decreased; Polychromasia SLIGHT = 2-3 cells (100X) (0-2/hpf)
[2021-04-05] MEDS: Morphine 4 MG/ML VIAL SLOW IVP PRN ×2 (11:43→16:05)
[2021-04-05] MEDS: HumaLOG 300 UNITS/3 ML VIAL SC PRN (11:47)
[2021-04-05] MEDS ORDERED: Electrolyte Replacement Protocol 1 EACH FS SCH (12:00)
[2021-04-05] MEDS ORDERED: Electrolyte Replacement Protocol FS PRN (12:00)
[2021-04-05] MEDS ORDERED: Magnesium Sulfate 4 GM in Sodium Chloride 0.9% 250 ML 250 ML IVPB SCH (12:00)
[2021-04-05] MEDS: traMADol HCl 50 MG TAB PO SCH ×2 (13:33→22:32)
[2021-04-05] MEDS: Simethicone Chewable 80 MG TAB PO SCH (20:59)
[2021-04-05] MEDS: Atorvastatin Calcium 10 MG TAB PO SCH (21:01)
[2021-04-06] MEDS ORDERED: hydrALAZINE 20 MG/ML VIAL SLOW IVP SCH (00:30)
[2021-04-06] MEDS: HYDROmorphone 2 MG TAB PO SCH ×6 (01:13→21:47)
[2021-04-06 04:26] LABS: Platelet Count 20 thou/uL (130-400)
[2021-04-06 04:29] LABS: ALT (SGPT) 24 U/L (8-55); AST (SGOT) 14 U/L (5-34); Albumin 2.9 g/dL (3.4-4.8); Alkaline Phosphatase 60 U/L (40-110); Anion Gap 9 mmol/L (10-20); BUN (Urea Nitrogen) 15 mg/dL (9.8-20.1); Bilirubin, Total 0.5 mg/dL (0.2-1.2); Calc. Creatinine Clearance 84 mL/min (70-130); Calcium 8.3 mg/dL (7.8-10.44); Carbon Dioxide 24 mmol/L (23-31); Chloride 107 mmol/L (98-107); Globulin 1.8 g/dL (2.4-3.5); Glucose 143 mg/dL (83-110); Magnesium 1.7 mg/dL (1.6-2.6); Potassium 3.8 mmol/L (3.5-5.1); Protein, Total 4.7 g/dL (5.8-8.1); Sodium 136 mmol/L (136-145)
[2021-04-06] MEDS: Acetaminophen 325 MG TAB PO SCH ×3 (05:02→19:25)
[2021-04-06 05:03] LABS: Band 10 % (5-11); Eosinophils 5 % (0-10); Lymphocytes 9 % (21-51); MDiff Complete? YES; Mean Corpuscular HGB CONC 35.7 g/dL (32.0-36.0); Mean Corpuscular Hemoglobin 32.6 pg (27.0-31.0); Mean Corpuscular Volume 91.5 fL (78.0-98.0); Mean Platelet Volume 8.9 fL (7.4-10.4); Monocytes 10 % (0-10); Myelocyte 2 % (0-0); Neutrophil 64 % (42-75); Nucleated RBC 1 % (0); Platelet Morphology Comment Appears Decreased; RBC Distribution Width 14.3 % (11.5-14.5); RBC Morphology Normal; Red Blood Cell (RBC) Count 2.15 mill/uL (4.20-5.40); White Blood Cell (WBC) Count 1.2 thou/uL (4.8-10.8)
[2021-04-06] MEDS ORDERED: Magnesium 2 GM/50 ML 2 GM in Premix Bag 1 BAG IVPB SCH ×2 (05:30→07:00)
[2021-04-06] MEDS: traMADol HCl 50 MG TAB PO SCH ×3 (06:01→21:48)
[2021-04-06] MEDS ORDERED: Potassium Chloride 20 MEQ TAB PO SCH (07:00)
[2021-04-06] MEDS: Benzonatate 100 MG CAP PO SCH ×3 (08:34→21:47)
[2021-04-06] MEDS: Lisinopril 20 MG TAB PO SCH ×2 (08:34→21:47)
[2021-04-06] MEDS: Amoxicillin/Potassium Clav 875 MG TAB PO SCH ×2 (08:34→21:47)
[2021-04-06] MEDS: Amiodarone 200 MG TAB PO SCH ×3 (08:36→21:47)
[2021-04-06] MEDS: Silver Sulfadiazine 50 GM TUBE TOP SCH ×2 (08:45→21:48)
[2021-04-06 10:19] VITALS: BMI 31.0
[2021-04-06 11:29] LABS: Creatinine, Urine 53.22 mg/dL (47-110)
[2021-04-06 12:19] LABS: Glucose 162 mg/dL (83-110)
[2021-04-06] MEDS ORDERED: Loperamide HCl 2 MG CAP PO PRN (14:27)
[2021-04-06] MEDS ORDERED: Saccharomyces boulardii 250 MG CAP PO SCH (14:45)
[2021-04-06 17:11] LABS: Glucose 112 mg/dL (83-110)
[2021-04-06] MEDS: Simethicone Chewable 80 MG TAB PO SCH (21:47)
[2021-04-06] MEDS: Atorvastatin Calcium 10 MG TAB PO SCH (21:47)
[2021-04-06] MEDS: Doxycycline 100 MG CAP PO SCH (21:47)
[2021-04-06 22:24] LABS: Glucose 113 mg/dL (83-110)
[2021-04-07] MEDS: HYDROmorphone 2 MG TAB PO SCH ×4 (00:06→13:07)
[2021-04-07] MEDS: Acetaminophen 325 MG TAB PO SCH ×3 (00:06→13:08)
[2021-04-07 05:14] LABS: ALT (SGPT) 21 U/L (8-55); AST (SGOT) 14 U/L (5-34); Alkaline Phosphatase 62 U/L (40-110); Anion Gap 7 mmol/L (10-20); BUN (Urea Nitrogen) 11 mg/dL (9.8-20.1); Bilirubin, Total 0.5 mg/dL (0.2-1.2); Calc. Creatinine Clearance 80 mL/min (70-130); Calcium 8.7 mg/dL (7.8-10.44); Carbon Dioxide 28 mmol/L (23-31); Chloride 104 mmol/L (98-107); Globulin 1.8 g/dL (2.4-3.5); Glucose 130 mg/dL (83-110); Magnesium 1.4 mg/dL (1.6-2.6); Phosphorus 3.2 mg/dL (2.3-4.7); Potassium 4.2 mmol/L (3.5-5.1); Protein, Total 4.8 g/dL (5.8-8.1); Sodium 135 mmol/L (136-145)
[2021-04-07 05:18] LABS: Hemoglobin 7.1 g/dL (12.0-16.0); Mean Corpuscular HGB CONC 36.5 g/dL (32.0-36.0); Mean Corpuscular Hemoglobin 33.3 pg (27.0-31.0); Mean Corpuscular Volume 91.2 fL (78.0-98.0); Mean Platelet Volume 9.7 fL (7.4-10.4); Platelet Count 26 thou/uL (130-400); RBC Distribution Width 14.3 % (11.5-14.5); Red Blood Cell (RBC) Count 2.14 mill/uL (4.20-5.40); White Blood Cell (WBC) Count 1.7 thou/uL (4.8-10.8)
[2021-04-07 05:51] LABS: Band 8 % (5-11); Eosinophils 9 % (0-10); Lymphocytes 14 % (21-51); MDiff Complete? YES; Metamyelocyte 1 % (0-0); Monocytes 5 % (0-10); Neutrophil 62 % (42-75); Platelet Morphology Comment Appears Decreased
[2021-04-07] MEDS: traMADol HCl 50 MG TAB PO SCH (06:36)
[2021-04-07] MEDS: Magnesium 2 GM/50 ML 2 GM in Premix Bag 1 BAG IVPB SCH ×2 (06:37→07:48)
[2021-04-07] MEDS ORDERED: Magnesium 2 GM/50 ML 4 GM in Premix Bag 1 BAG IVPB SCH (07:00)
[2021-04-07] MEDS ORDERED: Saccharomyces boulardii 250 MG CAP PO SCH (09:00)
[2021-04-07] MEDS: Doxycycline 100 MG CAP PO SCH (09:14)
[2021-04-07] MEDS: Lisinopril 20 MG TAB PO SCH (09:14)
[2021-04-07] MEDS: Amiodarone 200 MG TAB PO SCH (09:14)
[2021-04-07] MEDS: Silver Sulfadiazine 50 GM TUBE TOP SCH (09:14)
[2021-04-07] MEDS: Benzonatate 100 MG CAP PO SCH (09:14)
[2021-04-07] MEDS: Amoxicillin/Potassium Clav 875 MG TAB PO SCH (09:14)
[2021-04-07 09:16] VITALS: BP 180/74
[2021-04-07 12:09] VITALS: TEMP 98.4
[2021-04-07] MEDS ORDERED: Amoxicillin/Potassium Clav 600 mg/5 ml Oral Suspension PO SCH (15:00)
== END 2021-04-07 14:28 | disposition swing bed (61) | DRG 871 ==
LOC: 2NO 05:58 → ONC 04-05 12:24
PROVIDERS: ADMIT Student in an Organized Health Care Education/Training Program; ATTEND Family Medicine
PROC: 30233R0 Transfusion of Autologous Platelets into Peripheral Vein, Percutaneous Approach (ICD-10-PCS; principal; 2021-04-03)
PROC: 6A550Z2 Pheresis of Platelets, Single (ICD-10-PCS; 2021-04-03)
PROC: 8E0ZXY6 Isolation (ICD-10-PCS; 2021-04-03)
DX: A41.9 Sepsis, unspecified organism (principal); R65.21 Severe sepsis with septic shock; D61.810 Antineoplastic chemotherapy induced pancytopenia; L03.314 Cellulitis of groin; L03.317 Cellulitis of buttock; N17.9 Acute kidney failure, unspecified; E87.1 Hypo-osmolality and hyponatremia; C21.1 Malignant neoplasm of anal canal; Z20.822 Contact with and (suspected) exposure to COVID-19; T45.1X5A Adverse effect of antineoplastic and immunosuppressive drugs, initial encounter; I10 Essential (primary) hypertension; E86.0 Dehydration; I08.1 Rheumatic disorders of both mitral and tricuspid valves; I48.0 Paroxysmal atrial fibrillation; E78.5 Hyperlipidemia, unspecified; R19.7 Diarrhea, unspecified; G47.00 Insomnia, unspecified; Z96.653 Presence of artificial knee joint, bilateral; D70.3 Neutropenia due to infection; T21.05XA Burn of unspecified degree of buttock, initial encounter; Y84.2 Radiological procedure and radiotherapy as the cause of abnormal reaction of the patient, or of later complication, without mention of misadventure at the time of the procedure; E83.42 Hypomagnesemia; Z87.440 Personal history of urinary (tract) infections; Z87.898 Personal history of other specified conditions; Z88.6 Allergy status to analgesic agent; Z88.5 Allergy status to narcotic agent; Z88.8 Allergy status to other drugs, medicaments and biological substances; Z28.21 Immunization not carried out because of patient refusal; Z80.0 Family history of malignant neoplasm of digestive organs; Z80.8 Family history of malignant neoplasm of other organs or systems; Z79.899 Other long term (current) drug therapy; Z79.84 Long term (current) use of oral hypoglycemic drugs; Z51.0 Encounter for antineoplastic radiation therapy; E11.42 Type 2 diabetes mellitus with diabetic polyneuropathy
CPT/HCPCS: 36415; 36416; 36430; 71045; 74018; 77336; 77386; 80053; 80061; 80202; 81003; 81015; 82274; 82570; 83036; 83735; 83880; 84100; 84300; 84540; 84550; 85025; 86140; 86850; 86900; 86901; 87086; 87324; 87449; 93005; 93010; 93306; J0360; J0692; J1642; J1815; J2270; J3370; J3475; J3490; J7030; J7050; P9035; P9047

== ENCOUNTER 2021-06-20 10:53 | Outpatient (CLI) | payer MEDICARE, BC | END 2021-06-20 10:54 | disposition home or self-care (01) | LOC: PET 10:53 | PROVIDERS: ATTEND Internal Medicine Hematology & Oncology | DX: C21.1 Malignant neoplasm of anal canal (principal) | CPT/HCPCS: 78815; A9552 ==

== ENCOUNTER 2022-03-07 13:38 | Outpatient (CLI) | payer MEDICARE, BC | END 2022-03-07 13:39 | disposition home or self-care (01) | LOC: BICMRI 13:38 | PROVIDERS: ATTEND Anesthesiology Pain Medicine | DX: M54.16 Radiculopathy, lumbar region (principal); M48.04 Spinal stenosis, thoracic region; Z98.1 Arthrodesis status; M51.34 Other intervertebral disc degeneration, thoracic region; Z98.890 Other specified postprocedural states | CPT/HCPCS: 72148 ==

== ENCOUNTER 2023-12-23 11:05 | Outpatient (CLI) | payer MEDICARE, BC ==
[2023-12-23 13:34] LABS: #Basophils 0.04 10x3/uL (0.0-0.2); #Eosinphils 0.21 10x3/uL (0.0-0.5); #Monocytes 0.56 10x3/uL (0.0-1.1); #Neutrophils 4.14 10x3/uL (1.5-8.4); %Basophils 0.7 % (0.0-2.0); %Eosinophils 3.5 % (0.0-6.0); %Lymphocytes 18.1 % (18.0-47.0); %Monocytes 9.2 % (0.0-10.0); %Neutrophils 68.2 % (40.0-75.0); Hematocrit 36.4 % (34.9-44.5); Hemoglobin 11.8 g/dL (12.0-15.5); Mean Corpuscular HGB CONC 32.4 g/dL (32.0-36.0); Mean Corpuscular Hemoglobin 29.4 pg (27.0-33.0); Mean Corpuscular Volume 90.5 fL (81.6-98.3); Mean Platelet Volume 10.7 fL (7.4-10.4); Platelet Count 190 10x3/uL (150-450); RBC Distribution Width 16.7 % (11.5-14.5); Red Blood Cell (RBC) Count 4.02 10x6/uL (3.90-5.03); White Blood Cell (WBC) Count 6.1 10x3/uL (3.5-10.5)
[2023-12-23 14:03] LABS: Anion Gap 15 mmol/L (10-20); BUN (Urea Nitrogen) 32 mg/dL (9.8-20.1); Calc. Creatinine Clearance 0 mL/min (70-130); Calcium 9.6 mg/dL (7.8-10.44); Carbon Dioxide 30 mmol/L (23-31); Chloride 98 mmol/L (98-107); Estimated GFR 41; Glucose 141 mg/dL (83-110); Potassium 5.2 mmol/L (3.5-5.1); Sodium 138 mmol/L (136-145)
== END 2023-12-23 11:06 | disposition home or self-care (01) ==
LOC: LABBT 11:05
PROVIDERS: ATTEND Orthopaedic Surgery
DX: Z01.818 Encounter for other preprocedural examination (principal); M12.812 Other specific arthropathies, not elsewhere classified, left shoulder; M96.89 Other intraoperative and postprocedural complications and disorders of the musculoskeletal system
CPT/HCPCS: 80048; 85025; 93005; 93010

== ENCOUNTER 2023-12-26 08:03 | Observation (INO) | payer MEDICARE, BC ==
[2023-12-26] MEDS ORDERED: Ondansetron PF 4 MG/2 ML Vial ONE (08:21)
[2023-12-26] MEDS ORDERED: Lidocaine 2% PF 5 ML VIAL ONE (08:21)
[2023-12-26] MEDS ORDERED: Rocuronium Bromide 10 MG/ML (10ML VIAL) ONE (08:21)
[2023-12-26] MEDS ORDERED: Dexamethasone 4 mg/ml Vial ONE (08:21)
[2023-12-26] MEDS ORDERED: PROPOFOL 20 ML ONE (08:23)
[2023-12-26] MEDS ORDERED: Sodium Chloride 0.9% 100 ML ONE ×2 (08:29→10:40)
[2023-12-26] MEDS ORDERED: Vancomycin 1 GM/200 ML (FROZEN) BAG ONE (08:29)
[2023-12-26] MEDS ORDERED: Tranexamic Acid 1,000 MG/10 ML VIAL ONE (08:29)
[2023-12-26] MEDS ORDERED: Ropivacaine 0.5% HCl/PF (150 MG/30 ML VIAL) ONE (08:42)
[2023-12-26] MEDS ORDERED: Ropivacaine 0.2% HCl/PF 20 ML ONE (08:42)
[2023-12-26] MEDS ORDERED: fentaNYL 50 mcg/mL 1 mL Vial ONE (08:42)
[2023-12-26] MEDS ORDERED: Midazolam HCl 2 mg/2 ml Vial ONE (08:42)
[2023-12-26] MEDS ORDERED: busPIRone HCl 5 MG TAB PO SCH (09:00)
[2023-12-26] MEDS ORDERED: fentaNYL 50 mcg/mL 1 mL Vial SLOW IVP PRN (09:22)
[2023-12-26] MEDS ORDERED: Ondansetron PF 4 MG/2 ML Vial IVP PRN (09:30)
[2023-12-26] MEDS ORDERED: traMADol HCl 50 MG TAB PO PRN (09:30)
[2023-12-26] MEDS ORDERED: Zolpidem Tartrate 5 MG TAB PO PRN (09:30)
[2023-12-26] MEDS ORDERED: Promethazine HCl 25 MG/ML VIAL IM PRN ×2 (09:30→12:59)
[2023-12-26] MEDS ORDERED: Ropivacaine 0.2% 550 ML 550 ML NERVE BLCK SCH (09:30)
[2023-12-26] MEDS ORDERED: CEFAZOLIN 2 GM VIAL ONE (10:40)
[2023-12-26] MEDS ORDERED: fentaNYL PF 100 MCG/2 ML SYRINGE ONE (10:49)
[2023-12-26] MEDS ORDERED: ePHEDrine Sulfate 50 MG/10 ML VIAL ONE (11:29)
[2023-12-26] MEDS ORDERED: SUGAMMADEX SODIUM 200 MG/2 ML VIAL ONE (11:35)
[2023-12-26] MEDS ORDERED: Acetaminophen 325 MG TAB PO PRN (12:48)
[2023-12-26] MEDS ORDERED: Bisacodyl 10 MG SUPP PR PRN (12:48)
[2023-12-26] MEDS ORDERED: Milk Of Magnesia 30 ML UDCUP PO PRN (12:48)
[2023-12-26] MEDS ORDERED: diphenhydrAMINE 50 MG CAP PO PRN (12:48)
[2023-12-26] MEDS ORDERED: Ondansetron HCl/PF 4 MG/2 ML Vial IVP PRN (12:59)
[2023-12-26] MEDS ORDERED: Fentanyl 250 MCG/5 ML VIAL ONE (13:05)
[2023-12-26] MEDS: Sodium Chloride 0.9% 1,000 ML IV SCH (17:19)
[2023-12-26] MEDS ORDERED: Melatonin 3 MG TAB PO PRN (21:01)
[2023-12-26] MEDS ORDERED: ALPRAZolam 0.25 MG TAB PO PRN (21:03)
[2023-12-26] MEDS: CEFAZOLIN 2 GM in Sodium Chloride 0.9% 100 ML IVPB SCH (21:55)
[2023-12-26] MEDS: Lisinopril 20 MG TAB PO SCH (21:55)
[2023-12-26] MEDS: Famotidine 20 MG TAB PO SCH (21:56)
[2023-12-26] MEDS: LevoFLOXacin 500 MG TAB PO SCH (21:56)
[2023-12-26] MEDS: HYDROcodone/Acetaminophen 10/325 mg Tablet PO PRN (21:56)
[2023-12-26] MEDS: Allopurinol 100 MG TAB PO SCH (21:56)
[2023-12-26] MEDS: Gabapentin 300 MG CAP PO SCH (21:56)
[2023-12-26] MEDS: Pantoprazole DR 40 MG TAB PO SCH (21:57)
[2023-12-26] MEDS: busPIRone HCl 5 MG TAB PO SCH (21:57)
[2023-12-26 23:02] LABS: Bacteria/HPF None Seen HPF (None Seen); Bilirubin Negative (Negative); Blood, Urine Trace (Negative); Clarity Turbid (Clear); Glucose, Urine (Dipstick) Greater than 1000 mg/dL (Negative); Ketone, Urine Negative (Negative); Leukocyte 500 Leu/uL (Negative); Nitrite Negative (Negative); Protein, Urine (Dipstick) Negative (Neg-Trace); Squamous Epithelial 0-3 HPF (0-3); Urobilinogen Normal mg/dL (Less than 2); WBC/HPF Greater than 50 HPF (0-3); pH, Urine 6.5 (5.0-9.0)
[2023-12-27] MEDS: HYDROcodone/Acetaminophen 10/325 mg Tablet PO PRN (04:06)
[2023-12-27] MEDS: Aspirin Chewable 81 MG TAB PO SCH (08:49)
[2023-12-27] MEDS: glipiZIDE 10 MG TAB PO SCH (08:50)
[2023-12-27] MEDS: Atorvastatin Calcium 40 MG TAB PO SCH (08:50)
[2023-12-27] MEDS: Empagliflozin 25 MG TAB PO SCH (08:51)
[2023-12-27] MEDS: traMADol HCl 50 MG TAB PO PRN (08:51)
[2023-12-27] MEDS ORDERED: Ondansetron ODT 4 MG TAB PO PRN (08:52)
[2023-12-27] MEDS: Methocarbamol 500 MG TAB PO PRN (09:02)
[2023-12-27] MEDS: Sulfameth/Trimethoprim DS 800-160mg TAB PO SCH (09:02)
[2023-12-27 16:22] VITALS: BP 172/72; TEMP 98.4
[2023-12-27] MEDS ORDERED: SEMAGLUTIDE 3 MG PO SCH (17:00)
[2023-12-27 21:19] VITALS: BMI 33.0
== END 2023-12-27 18:50 | disposition home or self-care (01) ==
LOC: SDC 08:03 → SURG B 12:48
PROVIDERS: ADMIT Orthopaedic Surgery; ATTEND Orthopaedic Surgery
PROC: 0RRK0JZ Replacement of Left Shoulder Joint with Synthetic Substitute, Open Approach (ICD-10-PCS; principal; 2023-12-26)
PROC: 0LS40ZZ Reposition Left Upper Arm Tendon, Open Approach (ICD-10-PCS; 2023-12-26)
PROC: 0LS40ZZ Reposition Left Upper Arm Tendon, Open Approach (ICD-10-PCS; 2023-12-26)
DX: M12.812 Other specific arthropathies, not elsewhere classified, left shoulder (principal); M96.89 Other intraoperative and postprocedural complications and disorders of the musculoskeletal system; M75.121 Complete rotator cuff tear or rupture of right shoulder, not specified as traumatic; Z88.8 Allergy status to other drugs, medicaments and biological substances
CPT/HCPCS: 23430; 23472; 64415; 97110; 97116 ×2; 97535; A4306; C1713 ×4; C1776 ×2; J1100; J2001; J2405; J2704; J2795 ×3; J3010 ×2; J3370; J7030; 81003; 81015; J2250